=== PATIENT | male | born 1990 | race African-American/Black ===

== ENCOUNTER 2018-06-10 22:20 | Inpatient (IN) | END 2018-06-14 21:55 | disposition home or self-care (01) | DRG 682 ==

== ENCOUNTER 2018-07-12 13:00 | Inpatient (IN) | END 2018-07-14 20:32 | disposition home or self-care (01) | DRG 640 ==

== ENCOUNTER 2018-12-11 01:50 | Inpatient (IN) | payer MEDICARE ==
[2018-12-11] VITALS (7 sets, daily range): BP systolic 159–197; BP diastolic 92–117; PULSE 100–117; RESP 20; Ht 185.4 cm; Wt 72.7 kg
[~2018-12-11] VITALS: Ht 185.4 cm; Wt 72.7 kg
[~2018-12-11 01:50] MED LIST: CARV12.579 PO; HYDR-3672 PO; LOSA50TA2 PO; NEPH PO; NIFE30TA2 PO
[2018-12-11] MEDS ORDERED: hydrALAzine 20 MG INJ IV ONE ×2 (03:30→05:30)
[2018-12-11] MEDS ORDERED: LABETALOL HCL 20MG INJ ONE (06:16)
[2018-12-11] MEDS ORDERED: LABETALOL HCL 20MG INJ IV ONE (06:30)
[2018-12-11] MEDS ORDERED: NACL 0.9% 3 ML SYG IV SCH (07:00)
[2018-12-11] MEDS ORDERED: ACETAMINOPHEN 325 MG TAB PO PRN (07:00)
[2018-12-11] MEDS ORDERED: NITROGLYCERIN (SL) 0.4 MG TAB SL PRN (07:00)
[2018-12-11] MEDS ORDERED: LABETALOL HCL 20MG INJ IV PRN (07:00)
--- NOTE | 2018-12-11 08:37 | HP ---
Date/Time of Note Date/Time of Note DATE: 12/11/18 TIME: 08:37 Assessment/Plan VTE Prophylaxis SCD applied (from Nsg): Yes Pharmacological prophylaxis: heparin Lines/Catheters IV Catheter Type (from Nrsg): Saline Lock Assessment/Plan Hospital Course SUBJECTIVE: Lying in bed comfortably. No SOB, chest pain, or other discomfort. On room air. OBJECTIVE: Vital signs-see below PHYSICAL EXAM: Constitutional: Well-developed, well-nourished, not in acute distress. HEENT: Head atraumatic and normocephalic. Eyes: Extraocular muscles intact. Anicteric sclerae. Pupils equal bilaterally, reactive to light. NECK: Supple without lymph node. CHEST: Clear and good breath sounds equally. No wheezing. No rhonchi. HEART: S1, S2. Regular rate and rhythm. ABDOMEN: Soft, nontender. Bowel sounds were present. EXTREMITIES: Full range of motion in all the extremities. No cyanosis, clubbing or edema. NEUROLOGIC: Alert and oriented x3. No focal deficit. No sensory deficit. PSYCHOSOCIAL: In a good mood. No signs of depression. INTEGUMENTARY: Moist mucous membranes. Good skin turgor, intact. Access: Right upper extremity AV fistula ASSESSMENT AND PLAN:28 yo AA male w/htn, ESRD/HD () here with shortness of breath and persistent hypertension 3-day duration... 1. Hypertensive emergency. --Increase Coreg to 25 mg, increase nifedipine to 60 mg, resume hydralazine 50 mg 3 times daily -Add as needed clonidine 2. Troponin leak, likely type B in light of ESRD/poor renal clearance. -NO Chest pain, EKG with no ST or T wave acute changes. -Continue trending cardiac biomarkers. 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 3. Pulmonary edema with volume overload -Nephrology consulted for hemodialysis/ultrafiltration -Monitor volume status 4. ESRD, hemodialysis () -Access: Right AV shunt, good bruit/thrill -Management per nephrology. -Monitor renal function. 5. Asymptomatic sinus tachycardia -Continue monitoring. 6. Anemia of ESRD -Stable H&H. Epogen per nephrology team. DVT prophylaxis: Subcutaneous heparin. PUD prophylaxis: Not indicated CODE STATUS: Full code Diet: Renal diet. Disposition: Continue current management. Await for cardiology/nephrology recommendations. Patient was seen in collaboration with Dr. Barajas. Result Diagram: 12/11/18 0228 12/11/18 0228 Results 24hrs Laboratory Tests Test 12/11/18 02:28 12/11/18 02:31 White Blood Count 11.1 #H Red Blood Count 3.74 #L Hemoglobin 10.8 #L Hematocrit 34.0 #L Mean Corpuscular Volume 90.9 Mean Corpuscular Hemoglobin 28.9 L Mean Corpuscular Hemoglobin Concent 31.8 L Red Cell Distribution Width 14.3 Platelet Count 236 Mean Platelet Volume 10.5 H Immature Granulocytes % 0.500 H Neutrophils % 84.9 H Lymphocytes % 5.7 L Monocytes % 8.3 Eosinophils % 0.3 Basophils % 0.3 Nucleated Red Blood Cells % 0.0 Immature Granulocytes # 0.060 H Neutrophils # 9.5 H Lymphocytes # 0.6 L Monocytes # 0.9 Eosinophils # 0.0 Basophils # 0.0 Nucleated Red Blood Cells # 0.0 Prothrombin Time 13.7 Prothrombin Time Ratio 1.1 INR International Normalized Ratio 1.04 Activated Partial Thromboplast Time 27.2 Sodium Level 140 Potassium Level 4.3 Chloride Level 97 Carbon Dioxide Level 22 Anion Gap 21 H Blood Urea Nitrogen 77 H Creatinine 14.52 H Est Glomerular Filtrat Rate mL/min 5 L Glucose Level 94 Calcium Level 9.4 Total Bilirubin 0.9 Direct Bilirubin 0.00 Indirect Bilirubin 0.9 Aspartate Amino Transf (AST/SGOT) 16 Alanine Aminotransferase (ALT/SGPT) 9 L Alkaline Phosphatase 100 Troponin I 0.228 *H Total Protein 8.1 Albumin 4.4 Globulin 3.70 H Albumin/Globulin Ratio 1.18 Lactic Acid Level 1.3 HPI/ROS Admit Date/Time Admit Date/Time Dec 11, 2018 at 05:31 Hx of Present Illness 28-year-old -[place] male with a past medical history of end-stage renal disease on hemodialysis schedule, hypertension, anemia of ESRD, admitted with shortness of breath, persistent hypertension since Tuesday after dialysis. Patient denied chest pain, palpitation, nausea, vomiting, abdominal pain, diaphoresis, loss of consciousness, dizziness, fever, chills, cough, hemoptysis, diarrhea or other constitutional symptoms. Initial labs showed white count 11,100, hemoglobin 10.8, hematocrit 34, BUN 77, creatinine 14.52, and elevated troponin 0 0.228. Chest x-ray showed moderate cardiomegaly with pulmonary edema. Vital signs heart rate 116, blood pressure 227/144 on arrival. No fevers. ROS A 12 point review of system was assessed and is negative other than what is mentioned in the HPI PMH/Family/Social Past Medical History See HPI Medications Current Medications IV Flush (NS 3 ml) 3 ml PER PROTOCOL IV ; Start 12/11/18 at 07:00 Aspirin (Aspirin) 81 mg DAILY PO ; Start 12/11/18 at 09:00 Nitroglycerin (Nitroglycerin (Sl Tab) 0.4 Mg) 1 tab Q5M PRN SL .CHEST PAIN; Start 12/11/18 at 07:00 Acetaminophen (Tylenol Tab) 650 mg Q6H PRN PO .PAIN 1-3 OR TEMP; Start 12/11/18 at 07:00 Heparin Sodium (Porcine) (Heparin (5000 Units/1ml)) 5,000 unit Q12 SC ; Start 12/11/18 at 09:00 Carvedilol (Coreg) 12.5 mg BID PO ; Start 12/11/18 at 09:00 Losartan Potassium (Cozaar) 50 mg BID PO ; Start 12/11/18 at 09:00 Multivit/Ca Carb/ B Cmplx/FA/Prenat (Adrianne-Lauren) 1 tab DAILY PO ; Start 12/11/18 at 09:00 Nifedipine (Procardia Xl) 30 mg BID PO ; Start 12/11/18 at 09:00 Labetalol HCl (Labetalol) 10 mg Q2H PRN IV sbp > 160; Start 12/11/18 at 07:00 Coded Allergies: No Known Allergy (Unverified , 12/11/18) Past Surgical History AV fistula Past Surgical Hx: other Family History Significant Family History: no pertinent family hx Social History Former smoker. Currently denies any substance/nicotine/alcohol abuse Smoking Status: Former smoker Exam/Review of Systems Vital Signs Vitals Vital Signs Date Temp Pulse Resp B/P (MAP) Pulse Ox O2 O2 Flow FiO2 Time Delivery Rate 12/11/18 99.0 118 23 170/108 99 Nasal 4.0 08:08 (128) Cannula 118 12/11/18 50 02:47 FRANK ALBERTS V. [employer]CR[employer]ER Dec 11, 2018 08:37
[2018-12-11] MEDS: MULTIVIT/CA CARB/B CMPLX/FA TAB PO SCH (08:48)
[2018-12-11] MEDS: NIFEdipine (XL) 60 MG TAB PO SCH ×2 (08:50→20:16)
[2018-12-11] MEDS: LOSARTAN 50 MG TAB PO SCH ×2 (08:50→20:15)
[2018-12-11] MEDS: ASPIRIN 81 MG TAB PO SCH (08:50)
[2018-12-11] MEDS: HEPARIN 5,000 UNIT/1 ML VIAL SC SCH ×2 (08:51→20:26)
[2018-12-11] MEDS ORDERED: NIFEdipine (XL) 30 MG TAB PO SCH (09:00)
--- NOTE | 2018-12-11 11:39 | CONS ---
Assessment/Plan Assessment/Plan Assessment/Plan (Daily) 1. Acute NSTEMI 2. acute fluid overload with pulmonary edema 3. ESRD on HD TTS schedule 4. H/o HTN 5. H/o HL 6. H/o Anemia of ESRD 7. accelerated HTN Plan : will plan for HD on Tuesday AM through Right upper extremity AVF Coreg 25 mg BID, Clonidine 0.1mg PO TID, Losartan 50mg BID, hydralazine 50mg TID and Nifedipine XL 60mg BID, IV hydralazine prn NSTEMI management as per cardiology will keep pt on TTS schedule pt follows at [facility] Thanks for consultaiton, I will follow up Consultation Date/Type/Reason Admit Date/Time Dec 11, 2018 at 05:31 Date of Consultation: Dec 11, 2018 Type of Consult NEPHROLOGY Reason for Consultation ESRD on HD with acute NSTEMI Requesting Provider: FRANK ALBERTS NP Date/Time of Note DATE: 12/11/18 TIME: 11:39 Hx of Present Illness 28-year-old -[place] male with a past medical history of end-stage renal disease on hemodialysis schedule, hypertension, anemia of ESRD, admitted with shortness of breath, persistent hypertension since Tuesday after dialysis. Initial labs showed white count 11,100, hemoglobin 10.8, hematocrit 34, BUN 77, creatinine 14.52, and elevated troponin 0 0.228 Chest x-ray showed moderate cardiomegaly with pulmonary edema. Vital signs heart rate 116, blood pressure 227/144 on arrival. No fevers., no chills Pt admitted to tele floor for acute NSTEMI, cardiology has been consulted for it Renal has been consulted for Pulmonary edema, Accelerated HTN Constitutional: poor po Eyes: no complaints ENT: congestion Respiratory: pain, cough, pleuritic pain, shortness of breath Cardiovascular: no complaints Gastrointestinal: no complaints Genitourinary: no complaints Musculoskeletal: no complaints Skin: no complaints Neurologic: no complaints Endocrine: no complaints Lymphatic: no complaints Psychological: no complaints Immunologic: no complaints Past Medical History Medical History: high cholesterol, hypertension, other (ESRD on HD< GERD ) Home Meds Active Scripts Multivit/Ca Carb/B Cmplx/Fa* (Adrianne-Lauren*) 1 Tab Tab, 1 TAB PO DAILY, #30 TAB Prov:ANA MCKEON [employer]PERVISOR [employer]ANDY 06/14/18 Hydralazine Hcl* (Hydralazine Hcl*) 50 Mg Tab, 50 MG PO TID, #90 TAB Prov:ANA MCKEON SONIA 06/14/18 Nifedipine (Procardia Xl) 30 Mg Tab.er.24, 30 MG PO BID, #60 TAB Prov:ANA MCKEON SUPERVISOR [employer]ANDY 06/14/18 Carvedilol* (Carvedilol*) 12.5 Mg Tablet, 12.5 MG PO BID, #60 TAB Prov:ADANJUDIANA NP 06/14/18 Losartan Potassium* (Cozaar*) 50 Mg Tablet, 50 MG PO BID, #60 TAB Prov:ANA MCKEON SUPERVISOR [employer]ANDY 06/14/18 Medications Current Medications IV Flush (NS 3 ml) 3 ml PER PROTOCOL IV ; Start 12/11/18 at 07:00 Aspirin (Aspirin) 81 mg DAILY PO Last administered on 12/11/18at 08:50; Admin Dose 81 MG; Start 12/11/18 at 09:00 Nitroglycerin (Nitroglycerin (Sl Tab) 0.4 Mg) 1 tab Q5M PRN SL .CHEST PAIN; Start 12/11/18 at 07:00 Acetaminophen (Tylenol Tab) 650 mg Q6H PRN PO .PAIN 1-3 OR TEMP; Start 12/11/18 at 07:00 Heparin Sodium (Porcine) (Heparin (5000 Units/1ml)) 5,000 unit Q12 SC ; Start 12/11/18 at 09:00 Losartan Potassium (Cozaar) 50 mg BID PO Last administered on 12/11/18at 08:50; Admin Dose 50 MG; Start 12/11/18 at 09:00 Multivit/Ca Carb/ B Cmplx/FA/Prenat (Adrianne-Lauren) 1 tab DAILY PO Last administered on 12/11/18at 08:48; Admin Dose 1 TAB; Start 12/11/18 at 09:00 Hydralazine HCl (Apresoline) 50 mg TID PO Last administered on 12/11/18at 08:49; Admin Dose 50 MG; Start 12/11/18 at 09:00 Carvedilol (Coreg) 25 mg BID PO Last administered on 12/11/18at 08:50; Admin Dose 25 MG; Start 12/11/18 at 09:00 Nifedipine (Procardia Xl) 60 mg BID PO Last administered on 12/11/18at 08:50; Admin Dose 60 MG; Start 12/11/18 at 09:00 Atorvastatin Calcium (Lipitor) 80 mg HS PO ; Start 12/11/18 at 21:00 Clonidine (Catapres) 0.1 mg TID PO ; Start 12/11/18 at 13:00 Clonidine (Catapres) 0.2 mg Q6H PRN PO SBP>160; Start 12/11/18 at 10:30 Allergies: Coded Allergies: No Known Allergy (Unverified , 12/11/18) Past Surgical History Past Surgical Hx: other (Right upper rextremity AVF ) Family History Significant Family History: no pertinent family hx Social History Alcohol Use: none Smoking Status: Former smoker Drug Use: none Exam/Review of Systems Exam Vitals Vital Signs Date Temp Pulse Resp B/P (MAP) Pulse Ox O2 O2 Flow FiO2 Time Delivery Rate 12/11/18 98.9 102 20 160/92 90 11:18 (114) 12/11/18 Nasal 4.0 08:08 Cannula 12/11/18 50 02:47 Constitutional: alert Head: normocephalic ENMT: nl external ears & nose Neck: supple, non-tender Respiratory: crackles/rales, diminished breath sounds, other Cardiovascular: regular rate and rhythm Gastrointestinal: soft, non-tender Musculoskeletal: nl extremities to inspection Extremities: normal pulses Neurological: NURSE INFORMATICIST II-XII intact, nl mental status, nl speech, nl strength Skin: nl turgor Lymph: nl lymph nodes Results Result Diagram: 12/11/1822712/11/18 0228 Results 24hrs Laboratory Tests Test 12/11/18 02:28 12/11/18 02:31 12/11/18 08:02 White Blood Count 11.1 #H Red Blood Count 3.74 #L Hemoglobin 10.8 #L Hematocrit 34.0 #L Mean Corpuscular Volume 90.9 Mean Corpuscular Hemoglobin 28.9 L Mean Corpuscular Hemoglobin Concent 31.8 L Red Cell Distribution Width 14.3 Platelet Count 236 Mean Platelet Volume 10.5 H Immature Granulocytes % 0.500 H Neutrophils % 84.9 H Lymphocytes % 5.7 L Monocytes % 8.3 Eosinophils % 0.3 Basophils % 0.3 Nucleated Red Blood Cells % 0.0 Immature Granulocytes # 0.060 H Neutrophils # 9.5 H Lymphocytes # 0.6 L Monocytes # 0.9 Eosinophils # 0.0 Basophils # 0.0 Nucleated Red Blood Cells # 0.0 Prothrombin Time 13.7 Prothrombin Time Ratio 1.1 INR International Normalized Ratio 1.04 Activated Partial Thromboplast Time 27.2 Sodium Level 140 Potassium Level 4.3 Chloride Level 97 Carbon Dioxide Level 22 Anion Gap 21 H Blood Urea Nitrogen 77 H Creatinine 14.52 H Est Glomerular Filtrat Rate mL/min 5 L Glucose Level 94 Calcium Level 9.4 Total Bilirubin 0.9 Direct Bilirubin 0.00 Indirect Bilirubin 0.9 Aspartate Amino Transf (AST/SGOT) 16 Alanine Aminotransferase (ALT/SGPT) 9 L Alkaline Phosphatase 100 Troponin I 0.228 *H 0.320 *H Total Protein 8.1 Albumin 4.4 Globulin 3.70 H Albumin/Globulin Ratio 1.18 Lactic Acid Level 1.3 0.9 Creatine Kinase 144 Creatine Kinase Index 1.4 Creatinine Kinase MB (Mass) 1.99 Medications Medication Current Medications IV Flush (NS 3 ml) 3 ml PER PROTOCOL IV ; Start 12/11/18 at 07:00 Aspirin (Aspirin) 81 mg DAILY PO Last administered on 12/11/18at 08:50; Admin D ose 81 MG; Start 12/11/18 at 09:00 Nitroglycerin (Nitroglycerin (Sl Tab) 0.4 Mg) 1 tab Q5M PRN SL .CHEST PAIN; Start 12/11/18 at 07:00 Acetaminophen (Tylenol Tab) 650 mg Q6H PRN PO .PAIN 1-3 OR TEMP; Start 12/11/18 at 07:00 Heparin Sodium (Porcine) (Heparin (5000 Units/1ml)) 5,000 unit Q12 SC ; Start 12/11/18 at 09:00 Losartan Potassium (Cozaar) 50 mg BID PO Last administered on 12/11/18at 08:50; Admin Dose 50 MG; Start 12/11/18 at 09:00 Multivit/Ca Carb/ B Cmplx/FA/Prenat (Adrianne-Lauren) 1 tab DAILY PO Last administered on 12/11/18at 08:48; Admin Dose 1 TAB; Start 12/11/18 at 09:00 Hydralazine HCl (Apresoline) 50 mg TID PO Last administered on 12/11/18at 08:49; Admin Dose 50 MG; Start 12/11/18 at 09:00 Carvedilol (Coreg) 25 mg BID PO Last administered on 12/11/18at 08:50; Admin Dose 25 MG; Start 12/11/18 at 09:00 Nifedipine (Procardia Xl) 60 mg BID PO Last administered on 12/11/18at 08:50; Admin Dose 60 MG; Start 12/11/18 at 09:00 Atorvastatin Calcium (Lipitor) 80 mg HS PO ; Start 12/11/18 at 21:00 Clonidine (Catapres) 0.1 mg TID PO ; Start 12/11/18 at 13:00 Clonidine (Catapres) 0.2 mg Q6H PRN PO SBP>160; Start 12/11/18 at 10:30 AQUILINO RAPHAEL MD Dec 11, 2018 11:39
--- NOTE | 2018-12-11 14:21 | RADRPT ---
Echocardiogram Report Patient Name: ERIK BUSBYatient ID: [id number] : 1990 (28y 5m)Study Date: 12/11/2018 9:11:52 AM Gender: MAccession #: [id number] Tech: Marcel Yoon [facility] Location: [address] Ref.Physician: ROMELIA MOCTEZUMA Height(Cm): BSA: Weight(Kg): Quality: AdequateAccount #: Procedures: Echocardiographic Report: Transthoracic echocardiogram with complete 2D, M-Mode, and doppler examination. Indications: NSTEMI. Measurements: 2D/M Mode Doppler Measurement Value Normal Range Measurement Value Normal Range LVIDd 2D 5.3 [ 4.2 - 5.8 ] cm AV Peak Rick 1.7 [ 100.0 - 170.0 ] cm/sec LVIDs 2D 3.9 [ 2.5 - 4.0 ] cm AV Peak PG 12.0 [ 2.0 - 9.0 ] mmHg LVPWd 2D 1.4 [ 0.6 - 1.0 ] cm LVOT Peak Rick 1.8 [ 70.0 - 110.0 ] cm/sec IVSd 2D 1.7 [ 0.6 - 1.0 ] cm LVOT Peak PG 13.0 [ 2.0 - 6.0 ] mmHg AoR Diam 2D 2.5 [ 2.6 - 3.4 ] cm MV E Peak Rick 1.6 [ 60.0 - 130.0 ] cm/sec EDV 2D 134.0 [ 62.0 - 150.0 ] ml MV Decel Time 137 [ 104 - 258 ] msec ESV 2D 67.5 [ 21.0 - 61.0 ] ml Lat E` Rick 0.2 [ 10.0 - 15.0 ] cm/sec EF 2D 49.6 [ 52.0 - 72.0 ] percent Lateral E/E` 10.3 [ 1.0 - 2.0 ] ratio LA Dimen 2D 4.4 [ 3.0 - 4.0 ] cm TR Peak Rick 3.5 [ 100.0 - 280.0 ] cm/sec TR Peak PG 48.0 mmHg RVSP 58.0 [ 10.0 - 36.0 ] mmHg Findings: Left Ventricle: Lower limits of normal systolic function. Normal left ventricular cavity size. Sigmoid septum. Ejection fraction is visually estimated at 50 %. Tissue Doppler/Mitral Doppler indices are consistent with restrictive physiology with markedly elevated left atrial pressure (Stage III-IV diastolic dysfunction). Right Ventricle: Normal right ventricular size. Normal right ventricular systolic function. Left Atrium: There is mild enlargement of left atrium. Right Atrium: The right atrium is normal in size. Linear artifact in right atrium suggestive of catheter, pacer lead, or ICD lead. Mitral Valve: Mitral valve leaflets appear mildly thickened. Mild mitral leaflet calcification. Mild to moderate mitral valve regurgitation. The regurgitation jet is eccentrically directed which may underestimate the severity of mitral regurgitation. Aortic Valve: Aortic cusps appear mildly calcified. Mild aortic valve regurgitation. Tricuspid Valve: Normal appearance of the tricuspid valve. Estimated peak PA systolic pressure 58 mmHg. There is mild tricuspid regurgitation. Pulmonic Valve: Normal pulmonic valve appearance. Pericardium: Normal pericardium with no significant pericardial effusion. Aorta: Normal aortic root. IVC: Dilated IVC with respiratory collapse consistent with elevated right atrial pressure. Conclusions: There is mild enlargement of left atrium. Aortic cusps appear mildly calcified. Mild aortic valve regurgitation. Mitral valve leaflets appear mildly thickened. Mild mitral leaflet calcification. Mild to moderate mitral valve regurgitation. The regurgitation jet is eccentrically directed which may underestimate the severity of mitral regurgitation. Normal appearance of the tricuspid valve. Estimated peak PA systolic pressure 58 mmHg. There is mild tricuspid regurgitation. Lower limits of normal systolic function. Normal left ventricular cavity size. Sigmoid septum. Ejection fraction is visually estimated at 50 %. Tissue Doppler/Mitral Doppler indices are consistent with restrictive physiology with markedly elevated left atrial pressure (Stage III-IV diastolic dysfunction). Electronically Signed By: Antonio Oneill 2018-12-11 14:20:12 PDT
[2018-12-11] MEDS ORDERED: ALBUMIN HUMAN 25% 100 ML IV PRN (15:00)
[2018-12-11] MEDS ORDERED: SODIUM CHLORIDE 0.9% 1L BAG IV PRN (15:00)
--- NOTE | 2018-12-11 15:45 | CONS ---
Assessment/Plan Assessment/Plan Hospital Course (Demo Recall) 1. Mildly abnormal troponin: Most likely secondary to subendocardial injury due to renal failure, fluid overload, hypertension 2. Dyspnea multifactorial probably secondary to fluid overload 3. Hypertension hypertensive heart disease 4. Renal failure on dialysis 5. Anemia Recommendations: Follow-up with renal recommendation regarding hemodialysis. Aspirin for the time being We will repeat the cardiac enzymes tomorrow. So far CK CK-MB are not markedly elevated Coreg was increased. Continued blood pressure control Aggressive risk factor modifications Thank you for his referral. Continue to follow along with you HERMANN MOTA MD FAC Consultation Date/Type/Reason Admit Date/Time Dec 11, 2018 at 05:31 Date of Consultation: Dec 11, 2018 Type of Consult Cardiology Reason for Consultation + TROP Requesting Provider: FRANK ALBERTS NP Date/Time of Note DATE: 12/11/18 TIME: 15:40 Hx of Present Illness Interventional cardiology consultation note Chief complaint: Shortness of breath Reason for consult: Abnormal troponin History of present illness: Thank you for this referral. History was from the patient review of the chart discussion physician staff. This is a pleasant 28-year-old gentleman with history of renal failure on dialysis, hypertension, who has been short of breath over the past few days. Patient went on dialysis on Tuesday 2 days ago and had dialysis done but continues to be short of breath and finally came to emergency room. In the emergency was noted to have blood pressure over 230. His blood pressure has been better controlled and currently breathing better. His troponin was mildly elevated but denies any chest pain or pressure to me he has complains of congestion Allergies: No known drug allergies Medications were reviewed as per medical reconciliation sheet Family history: No history of early coronary artery disease in the family Father and grandfather with hypertension Social history: Smokes less than half a pack a day social drinking Past medical history: End-stage renal disease hemodialysis, hypertension Review of system: Patient denies all others except for above-mentioned Past Medical History Home Meds Active Scripts Multivit/Ca Carb/B Cmplx/Fa* (Adrianne-Lauren*) 1 Tab Tab, 1 TAB PO DAILY, #30 TAB Prov:ANA MCKEON [employer]AD 06/14/18 Hydralazine Hcl* (Hydralazine Hcl*) 50 Mg Tab, 50 MG PO TID, #90 TAB Prov:ANA MCKEON [employer]AD 06/14/18 Nifedipine (Procardia Xl) 30 Mg Tab.er.24, 30 MG PO BID, #60 TAB Prov:ADANJUDIANA [employer]ODUCTION LEAD 06/14/18 Carvedilol* (Carvedilol*) 12.5 Mg Tablet, 12.5 MG PO BID, #60 TAB Prov:ADANJUDIANA [employer]ODUCTION LEAD 06/14/18 Losartan Potassium* (Cozaar*) 50 Mg Tablet, 50 MG PO BID, #60 TAB Prov:ANA MCKEON [employer] LE[employer] 06/14/18 Medications Current Medications IV Flush (NS 3 ml) 3 ml PER PROTOCOL IV ; Start 12/11/18 at 07:00 Aspirin (Aspirin) 81 mg DAILY PO Last administered on 12/11/18at 08:50; Admin Dose 81 MG; Start 12/11/18 at 09:00 Nitroglycerin (Nitroglycerin (Sl Tab) 0.4 Mg) 1 tab Q5M PRN SL .CHEST PAIN; Start 12/11/18 at 07:00 Acetaminophen (Tylenol Tab) 650 mg Q6H PRN PO .PAIN 1-3 OR TEMP; Start 12/11/18 at 07:00 Heparin Sodium (Porcine) (Heparin (5000 Units/1ml)) 5,000 unit Q12 SC ; Start 12/11/18 at 09:00 Losartan Potassium (Cozaar) 50 mg BID PO Last administered on 12/11/18at 08:50; Admin Dose 50 MG; Start 12/11/18 at 09:00 Multivit/Ca Carb/ B Cmplx/FA/Prenat (Adrianne-Lauren) 1 tab DAILY PO Last administered on 12/11/18at 08:48; Admin Dose 1 TAB; Start 12/11/18 at 09:00 Hydralazine HCl (Apresoline) 50 mg TID PO Last administered on 12/11/18at 12:55; Admin Dose 50 MG; Start 12/11/18 at 09:00 Carvedilol (Coreg) 25 mg BID PO Last administered on 12/11/18at 08:50; Admin Dose 25 MG; Start 12/11/18 at 09:00 Nifedipine (Procardia Xl) 60 mg BID PO Last administered on 12/11/18at 08:50; Admin Dose 60 MG; Start 12/11/18 at 09:00 Atorvastatin Calcium (Lipitor) 80 mg HS PO ; Start 12/11/18 at 21:00 Clonidine (Catapres) 0.1 mg TID PO Last administered on 12/11/18at 12:54; Admin Dose 0.1 MG; Start 12/11/18 at 13:00 Clonidine (Catapres) 0.2 mg Q6H PRN PO SBP>160; Start 12/11/18 at 10:30 Albumin Human 100 ml @ 100 mls/hr WITH DIALYSIS PRN IV SBP <90 DURING DIALYSIS; Start 12/11/18 at 15:00 Sodium Chloride (NS) -To prime the dialy... DIRECTED FOR HD PRN IV HD; Start 12/11/18 at 15:00 Allergies: Coded Allergies: No Known Allergy (Unverified , 12/11/18) Past Surgical History Past Surgical Hx: other Social History Smoking Status: Former smoker Exam/Review of Systems Vital Signs Vitals Vital Signs Date Temp Pulse Resp B/P (MAP) Pulse Ox O2 O2 Flow FiO2 Time Delivery Rate 12/11/18 103 12:11 12/11/18 98.9 20 160/92 90 11:18 (114) 12/11/18 Nasal 4.0 08:08 Cannula 12/11/18 50 02:47 Exam Exam General: no acute distress HEENT: NC/AT. pupils are equal. round. NECK: NO JVD. no stridor. CV: RRR. systolic murmur; no gallop or rubs. PULM: no wheezing or rhonchi. GI: SOFT, NT, ND, no rebound or guarding Extremity: trace B/L LE edema. no clubbing. neuro: awake and alert, OX3. Psych: calm and pleasant rectal: deferred : normal EKG sinus tachycardia. Nonspecific ST abnormalities Chest x-ray showed. Bilateral hazy and patchy opacities could represent pulmonary edema and/or mult ifocal pneumonia. Mild to moderate cardiomegaly. Echocardiogram which was personally reviewed has shown: There is mild enlargement of left atrium. Aortic cusps appear mildly calcified. Mild aortic valve regurgitation. Mitral valve leaflets appear mildly thickened. Mild mitral leaflet calcification. Mild to moderate mitral valve regurgitation. The regurgitation jet is eccentrically directed which may underestimate the severity of mitral regurgitation. Normal appearance of the tricuspid valve. Estimated peak PA systolic pressure 58 mmHg. There is mild tricuspid regurgitation. Lower limits of normal systolic function. Normal left ventricular cavity size. Sigmoid septum. Ejection fraction is visually estimated at 50 %. Tissue Doppler/Mitral Doppler indices are consistent with restrictive physiology with markedly elevated left atrial pressure (Stage III-IV diastolic dysfunction). Labs Result Diagram: 12/11/188 12/11/188 Results 24hrs Laboratory Tests Test 12/11/18 02:28 12/11/18 02:31 12/11/18 08:02 White Blood Count 11.1 #H Red Blood Count 3.74 #L Hemoglobin 10.8 #L Hematocrit 34.0 #L Mean Corpuscular Volume 90.9 Mean Corpuscular Hemoglobin 28.9 L Mean Corpuscular Hemoglobin Concent 31.8 L Red Cell Distribution Width 14.3 Platelet Count 236 Mean Platelet Volume 10.5 H Immature Granulocytes % 0.500 H Neutrophils % 84.9 H Lymphocytes % 5.7 L Monocytes % 8.3 Eosinophils % 0.3 Basophils % 0.3 Nucleated Red Blood Cells % 0.0 Immature Granulocytes # 0.060 H Neutrophils # 9.5 H Lymphocytes # 0.6 L Monocytes # 0.9 Eosinophils # 0.0 Basophils # 0.0 Nucleated Red Blood Cells # 0.0 Prothrombin Time 13.7 Prothrombin Time Ratio 1.1 INR International Normalized Ratio 1.04 Activated Partial Thromboplast Time 27.2 Sodium Level 140 Potassium Level 4.3 Chloride Level 97 Carbon Dioxide Level 22 Anion Gap 21 H Blood Urea Nitrogen 77 H Creatinine 14.52 H Est Glomerular Filtrat Rate mL/min 5 L Glucose Level 94 Calcium Level 9.4 Total Bilirubin 0.9 Direct Bilirubin 0.00 Indirect Bilirubin 0.9 Aspartate Amino Transf (AST/SGOT) 16 Alanine Aminotransferase (ALT/SGPT) 9 L Alkaline Phosphatase 100 Troponin I 0.228 *H 0.320 *H Total Protein 8.1 Albumin 4.4 Globulin 3.70 H Albumin/Globulin Ratio 1.18 Lactic Acid Level 1.3 0.9 Creatine Kinase 144 Creatine Kinase Index 1.4 Creatinine Kinase MB (Mass) 1.99 Medications Medications Current Medications IV Flush (NS 3 ml) 3 ml PER PROTOCOL IV ; Start 12/11/18 at 07:00 Aspirin (Aspirin) 81 mg DAILY PO Last administered on 12/11/18at 08:50; Admin Dose 81 MG; Start 12/11/18 at 09:00 Nitroglycerin (Nitroglycerin (Sl Tab) 0.4 Mg) 1 tab Q5M PRN SL .CHEST PAIN; Start 12/11/18 at 07:00 Acetaminophen (Tylenol Tab) 650 mg Q6H PRN PO .PAIN 1-3 OR TEMP; Start 12/11/18 at 07:00 Heparin Sodium (Porcine) (Heparin (5000 Units/1ml)) 5,000 unit Q12 SC ; Start 12/11/18 at 09:00 Losartan Potassium (Cozaar) 50 mg BID PO Last administered on 12/11/18 08:50; Admin Dose 50 MG; Start 12/11/18 at 09:00 Multivit/Ca Carb/ B Cmplx/FA/Prenat (Adrianne-Lauren) 1 tab DAILY PO Last administered on 12/11/18at 08:48; Admin Dose 1 TAB; Start 12/11/18 at 09:00 Hydralazine HCl (Apresoline) 50 mg TID PO Last administered on 12/11/18 12:55; Admin Dose 50 MG; Start 12/11/18 at 09:00 Carvedilol (Coreg) 25 mg BID PO Last administered on 12/11/18 08:50; Admin Dose 25 MG; Start 12/11/18 at 09:00 Nifedipine (Procardia Xl) 60 mg BID PO Last administered on 12/11/18 08:50; Admin Dose 60 MG; Start 12/11/18 at 09:00 Atorvastatin Calcium (Lipitor) 80 mg HS PO ; Start 12/11/18 at 21:00 Clonidine (Catapres) 0.1 mg TID PO Last administered on 12/11/18at 12:54; Admin Dose 0.1 MG; Start 12/11/18 at 13:00 Clonidine (Catapres) 0.2 mg Q6H PRN PO SBP>160; Start 12/11/18 at 10:30 Albumin Human 100 ml @ 100 mls/hr WITH DIALYSIS PRN IV SBP <90 DURING DIALYSIS; Start 12/11/18 at 15:00 Sodium Chloride (NS) -To prime the dialy... DIRECTED FOR HD PRN IV HD; Start 12/11/18 at 15:00 HERMANN MOTA MD Dec 11, 2018 15:45
[2018-12-11] MEDS: ATORVASTATIN 80 MG TAB PO SCH (20:15)
[2018-12-12] VITALS (27 sets, daily range): BP systolic 120–158; BP diastolic 66–99; PULSE 72–100; RESP 18–20
[2018-12-12] MEDS: LOSARTAN 50 MG TAB PO SCH ×2 (08:25→21:00)
[2018-12-12] MEDS: MULTIVIT/CA CARB/B CMPLX/FA TAB PO SCH (08:25)
[2018-12-12] MEDS: NIFEdipine (XL) 60 MG TAB PO SCH ×2 (08:26→21:00)
[2018-12-12] MEDS: ASPIRIN 81 MG TAB PO SCH (08:26)
[2018-12-12] MEDS: HEPARIN 5,000 UNIT/1 ML VIAL SC SCH ×2 (08:29→21:00)
--- NOTE | 2018-12-12 12:05 | PN ---
Date/Time of Note Date/Time of Note DATE: 12/12/18 TIME: 12:02 Assessment/Plan VTE Prophylaxis Risk score (from Ns)>0 risk: 2 SCD applied (from Ns): No SCD contraindicated: other Pharmacological prophylaxis: heparin Lines/Catheters IV Catheter Type (from [facility]): Peripheral IV Assessment/Plan Hospital Course SUBJECTIVE: Having hemodialysis. No chest pain, palpitation or other discom fort. OBJECTIVE: Vital signs-see below PHYSICAL EXAM: Constitutional: Well-developed, well-nourished, not in acute distress. HEENT: Head atraumatic and normocephalic. Eyes: Extraocular muscles intact. Anicteric sclerae. Pupils equal bilaterally, reactive to light. NECK: Supple without lymph node. CHEST: Clear and good breath sounds equally. No wheezing. No rhonchi. HEART: S1, S2. Regular rate and rhythm. ABDOMEN: Soft, nontender. Bowel sounds were present. EXTREMITIES: Full range of motion in all the extremities. No cyanosis, clubbing or edema. NEUROLOGIC: Alert and oriented x3. No focal deficit. No sensory deficit. PSYCHOSOCIAL: In a good mood. No signs of depression. INTEGUMENTARY: Moist mucous membranes. Good skin turgor, intact. Access: Right upper extremity AV fistula ASSESSMENT AND PLAN:28 yo AA male w/htn, ESRD/HD (,) here with shortness of breath and persistent hypertension 3-day duration... 1. Hypertensive emergency. -Now stable. Continue current regimen Coreg/CCB/Hydralazine/Catpress. -UF 2. Troponin leak, likely type B in light of ESRD/poor renal clearance. -NO Chest pain, EKG with no ST or T wave acute changes. -Aspirin prophylaxis -Appreciate cards recs 3. Pulmonary edema/ volume overload 2/2 esrd/DD -Clinically improved -cont ultrafiltration -Monitor volume status 4. ESRD, hemodialysis (,) -Access: Right AV shunt, good bruit/thrill -HD per nephrology. -Monitor renal function. 5. Asymptomatic sinus tachycardia -Resolved 6. Anemia of ESRD -Stable H&H. Epogen per nephrology team. 7.Stage III-IV Diastolic Dysfunction -Cont.UF for fluid removal -cont.BB DVT prophylaxis: Subcutaneous heparin. PUD prophylaxis: Not indicated CODE STATUS: Full code Diet: Renal diet. Disposition: Continue current management. f/ cardiology/nephrology recommendations. Likely DC in a.m. with outpatient hemodialysis clinic follow- up if remains clinically stable. Patient was seen in collaboration with Dr. Barajas. Result Diagram: 12/12/18 0631 12/12/18 0631 Results 24hrs Laboratory Tests Test 12/11/18 14:27 12/12/18 06:31 Creatine Kinase 125 103 Creatine Kinase Index 1.5 1.5 Creatinine Kinase MB (Mass) 1.84 1.58 Troponin I 0.354 *H 0.227 *H White Blood Count 4.5 #L Red Blood Count 3.58 L Hemoglobin 10.2 L Hematocrit 32.2 L Mean Corpuscular Volume 89.9 Mean Corpuscular Hemoglobin 28.5 L Mean Corpuscular Hemoglobin Concent 31.7 L Red Cell Distribution Width 14.5 Platelet Count 247 Mean Platelet Volume 10.3 Immature Granulocytes % 0.400 Neutrophils % 64.8 Lymphocytes % 21.5 Monocytes % 7.3 Eosinophils % 4.7 Basophils % 1.3 Nucleated Red Blood Cells % 0.0 Immature Granulocytes # 0.020 Neutrophils # 2.9 Lymphocytes # 1.0 Monocytes # 0.3 Eosinophils # 0.2 Basophils # 0.1 Nucleated Red Blood Cells # 0.0 Sodium Level 137 Potassium Level 4.7 Chloride Level 94 L Carbon Dioxide Level 22 Anion Gap 21 H Blood Urea Nitrogen 106 H Creatinine 16.90 #H Est Glomerular Filtrat Rate mL/min 4 L Glucose Level 95 Hemoglobin A1c 5.1 Calcium Level 8.9 Magnesium Level 2.7 H Total Bilirubin 0.6 Direct Bilirubin 0.00 Indirect Bilirubin 0.6 Aspartate Amino Transf (AST/SGOT) 14 L Alanine Aminotransferase (ALT/SGPT) 9 L Alkaline Phosphatase 71 Total Protein 6.5 # Albumin 3.6 Globulin 2.90 Albumin/Globulin Ratio 1.24 Triglycerides Level 145 Cholesterol Level 168 LDL Cholesterol, Calculated 108 HDL Cholesterol 31 Cholesterol/HDL Ratio 5.4 Thyroid Stimulating Hormone (TSH) 0.279 L Exam/Review of Systems Exam Vitals Vital Signs Date Temp Pulse Resp B/P (MAP) Pulse Ox O2 O2 Flow FiO2 Time Delivery Rate 12/12/18 98.0 87 18 123/67 98 11:35 (85) 12/12/18 Room Air 09:30 12/11/18 4.0 08:08 12/11/18 50 02:47 Intake and Output 12/11/18 12/11/18 12/12/18 1515:00 23:00 07:00 IntakeIntake Total 400 ml BalanceBalance 400 ml Results Results 24hrs Laboratory Tests Test 12/11/18 14:27 12/12/18 06:31 Creatine Kinase 125 103 Creatine Kinase Index 1.5 1.5 Creatinine Kinase MB (Mass) 1.84 1.58 Troponin I 0.354 *H 0.227 *H White Blood Count 4.5 #L Red Blood Count 3.58 L Hemoglobin 10.2 L Hematocrit 32.2 L Mean Corpuscular Volume 89.9 Mean Corpuscular Hemoglobin 28.5 L Mean Corpuscular Hemoglobin Concent 31.7 L Red Cell Distribution Width 14.5 Platelet Count 247 Mean Platelet Volume 10.3 Immature Granulocytes % 0.400 Neutrophils % 64.8 Lymphocytes % 21.5 Monocytes % 7.3 Eosinophils % 4.7 Basophils % 1.3 Nucleated Red Blood Cells % 0.0 Immature Granulocytes # 0.020 Neutrophils # 2.9 Lymphocytes # 1.0 Monocytes # 0.3 Eosinophils # 0.2 Basophils # 0.1 Nucleated Red Blood Cells # 0.0 Sodium Level 137 Potassium Level 4.7 Chloride Level 94 L Carbon Dioxide Level 22 Anion Gap 21 H Blood Urea Nitrogen 106 H Creatinine 16.90 #H Est Glomerular Filtrat Rate mL/min 4 L Glucose Level 95 Hemoglobin A1c 5.1 Calcium Level 8.9 Magnesium Level 2.7 H Total Bilirubin 0.6 Direct Bilirubin 0.00 Indirect Bilirubin 0.6 Aspartate Amino Transf (AST/SGOT) 14 L Alanine Aminotransferase (ALT/SGPT) 9 L Alkaline Phosphatase 71 Total Protein 6.5 # Albumin 3.6 Globulin 2.90 Albumin/Globulin Ratio 1.24 Triglycerides Level 145 Cholesterol Level 168 LDL Cholesterol, Calculated 108 HDL Cholesterol 31 Cholesterol/HDL Ratio 5.4 Thyroid Stimulating Hormone (TSH) 0.279 L Medications Medication Current Medications IV Flush (NS 3 ml) 3 ml PER PROTOCOL IV ; Start 12/11/18 at 07:00 Aspirin (Aspirin) 81 mg DAILY PO Last administered on 12/12/18at 08:26; Admin Dose 81 MG; Start 12/11/18 at 09:00 Nitroglycerin (Nitroglycerin (Sl Tab) 0.4 Mg) 1 tab Q5M PRN SL .CHEST PAIN; Start 12/11/18 at 07:00 Acetaminophen (Tylenol Tab) 650 mg Q6H PRN PO .PAIN 1-3 OR TEMP; Start 12/11/18 at 07:00 Heparin Sodium (Porcine) (Heparin (5000 Units/1ml)) 5,000 unit Q12 SC Last administered on 12/11/18 20:26; Admin Dose 5,000 UNIT; Start 12/11/18 at 09:00 Losartan Potassium (Cozaar) 50 mg BID PO Last administered on 12/12/18 08:25; Admin Dose 50 MG; Start 12/11/18 at 09:00 Multivit/Ca Carb/ B Cmplx/FA/Prenat (Adrianne-Lauren) 1 tab DAILY PO Last ad ministered on 12/12/18 08:25; Admin Dose 1 TAB; Start 12/11/18 at 09:00 Hydralazine HCl (Apresoline) 50 mg TID PO Last administered on 12/12/18 08:26; Admin Dose 50 MG; Start 12/11/18 at 09:00 Carvedilol (Coreg) 25 mg BID PO Last administered on 12/12/18 08:25; Admin Dose 25 MG; Start 12/11/18 at 09:00 Nifedipine (Procardia Xl) 60 mg BID PO Last administered on 12/12/18 08:26; Admin Dose 60 MG; Start 12/11/18 at 09:00 Atorvastatin Calcium (Lipitor) 80 mg HS PO Last administered on 12/11/18 20:15; Admin Dose 80 MG; Start 12/11/18 at 21:00 Clonidine (Catapres) 0.1 mg TID PO Last administered on 12/12/18 08:25; Admin Dose 0.1 MG; Start 12/11/18 at 13:00 Clonidine (Catapres) 0.2 mg Q6H PRN PO SBP>160; Start 12/11/18 at 10:30 Albumin Human 100 ml @ 100 mls/hr WITH DIALYSIS PRN IV SBP <90 DURING DIALYSIS; Start 12/11/18 at 15:00 Sodium Chloride (NS) -To prime the dialy... DIRECTED FOR HD PRN IV HD; Start 12/11/18 at 15:00 FRANK ALBERTS NP Dec 12, 2018 12:05
--- NOTE | 2018-12-12 15:50 | CONS ---
Assessment/Plan Assessment/Plan Assessment/Plan (Daily) 1. Acute NSTEMI 2. acute fluid overload with pulmonary edema 3. ESRD on HD TTS schedule 4. H/o HTN 5. H/o HL 6. H/o Anemia of ESRD 7. accelerated HTN Plan : HD on Today through Right upper extremity AVF Coreg 25 mg BID, Clonidine 0.1mg PO TID, Losartan 50mg BID, hydralazine 50mg TID and Nifedipine XL 60mg BID, IV hydralazine prn NSTEMI management as per cardiology will keep pt on TTS schedule pt follows at [facility] HD center Thanks for consultation, will follow up Patient seen in collaboration with Dr Juan Nogueira. Dw staff Consultation Date/Type/Reason Admit Date/Time Dec 11, 2018 at 05:31 Initial Consult Date 12/11/18 Type of Consult NEPHROLOGY Requesting Provider: FRANK ALBERTS NP Date/Time of Note DATE: 12/12/18 TIME: 15:49 24 HR Interval Summary Free Text/Dictation nad HD today afebrile BP stable feels better no new events reported last night per staff Patient seen in collaboration with Dr Juan Nogueira. Dw staff Constitutional: improved Detailed Summary Eyes: no complaints ENT: pain Respiratory: no complaints Cardiovascular: no complaints Gastrointestinal: no complaints Genitourinary: no complaints Musculoskeletal: no complaints Skin: no complaints Neurologic: no complaints Endocrine: no complaints Lymphatic: no complaints Exam/Review of Systems Exam Vitals Vital Signs Date Temp Pulse Resp B/P (MAP) Pulse Ox O2 O2 Flow FiO2 Time Delivery Rate 12/12/18 93 12:40 12/12/18 98.0 18 123/67 98 11:35 (85) 12/12/18 Room Air 09:30 12/11/18 4.0 08:08 12/11/18 50 02:47 Intake and Output 12/11/18 12/11/18 12/12/18 1414:59 22:59 06:59 IntakeIntake Total 400 ml BalanceBalance 400 ml Constitutional: alert, oriented, well developed Psych: nl mood/affect Head: normocephalic Eyes: nl lids, nl sclera ENMT: nl external ears & nose Neck: non-tender Respiratory: clear to auscultation Cardiovascular: nl pulses, other (S1S2; Right arm - av fistula;positive Bruit/thrill) Gastrointestinal: soft, non-tender Musculoskeletal: muscle weakness Extremities: normal pulses Neurological: nl mental status, nl speech Skin: nl turgor Lymph: nontender Results Result Diagram: 12/12/18 0631 12/12/18 0631 Results 24hrs Laboratory Tests Test 12/12/18 06:31 White Blood Count 4.5 #L Red Blood Count 3.58 L Hemoglobin 10.2 L Hematocrit 32.2 L Mean Corpuscular Volume 89.9 Mean Corpuscular Hemoglobin 28.5 L Mean Corpuscular Hemoglobin Concent 31.7 L Red Cell Distribution Width 14.5 Platelet Count 247 Mean Platelet Volume 10.3 Immature Granulocytes % 0.400 Neutrophils % 64.8 Lymphocytes % 21.5 Monocytes % 7.3 Eosinophils % 4.7 Basophils % 1.3 Nucleated Red Blood Cells % 0.0 Immature Granulocytes # 0.020 Neutrophils # 2.9 Lymphocytes # 1.0 Monocytes # 0.3 Eosinophils # 0.2 Basophils # 0.1 Nucleated Red Blood Cells # 0.0 Sodium Level 137 Potassium Level 4.7 Chloride Level 94 L Carbon Dioxide Level 22 Anion Gap 21 H Blood Urea Nitrogen 106 H Creatinine 16.90 #H Est Glomerular Filtrat Rate mL/min 4 L Glucose Level 95 Hemoglobin A1c 5.1 Calcium Level 8.9 Magnesium Level 2.7 H Total Bilirubin 0.6 Direct Bilirubin 0.00 Indirect Bilirubin 0.6 Aspartate Amino Transf (AST/SGOT) 14 L Alanine Aminotransferase (ALT/SGPT) 9 L Alkaline Phosphatase 71 Creatine Kinase 103 Creatine Kinase Index 1.5 Creatinine Kinase MB (Mass) 1.58 Troponin I 0.227 *H Total Protein 6.5 # Albumin 3.6 Globulin 2.90 Albumin/Globulin Ratio 1.24 Triglycerides Level 145 Cholesterol Level 168 LDL Cholesterol, Calculated 108 HDL Cholesterol 31 Cholesterol/HDL Ratio 5.4 Thyroid Stimulating Hormone (TSH) 0.279 L Medications Medication Current Medications IV Flush (NS 3 ml) 3 ml PER PROTOCOL IV ; Start 12/11/18 at 07:00 Aspirin (Aspirin) 81 mg DAILY PO Last administered on 12/12/18at 08:26; Admin Dose 81 MG; Start 12/11/18 at 09:00 Nitroglycerin (Nitroglycerin (Sl Tab) 0.4 Mg) 1 tab Q5M PRN SL .CHEST PAIN; Start 12/11/18 at 07:00 Acetaminophen (Tylenol Tab) 650 mg Q6H PRN PO .PAIN 1-3 OR TEMP; Start 12/11/18 at 07:00 Heparin Sodium (Porcine) (Heparin (5000 Units/1ml)) 5,000 unit Q12 SC Last administered on 12/11/18 20:26; Admin Dose 5,000 UNIT; Start 12/11/18 at 09:00 Losartan Potassium (Cozaar) 50 mg BID PO Last administered on 12/12/18 08:25; Admin Dose 50 MG; Start 12/11/18 at 09:00 Multivit/Ca Carb/ B Cmplx/FA/Prenat (Adrianne-Lauren) 1 tab DAILY PO Last adminis tered on 12/12/18 08:25; Admin Dose 1 TAB; Start 12/11/18 at 09:00 Hydralazine HCl (Apresoline) 50 mg TID PO Last administered on 12/12/18 08:26; Admin Dose 50 MG; Start 12/11/18 at 09:00 Carvedilol (Coreg) 25 mg BID PO Last administered on 12/12/18 08:25; Admin Dose 25 MG; Start 12/11/18 at 09:00 Nifedipine (Procardia Xl) 60 mg BID PO Last administered on 12/12/18 08:26; Admin Dose 60 MG; Start 12/11/18 at 09:00 Atorvastatin Calcium (Lipitor) 80 mg HS PO Last administered on 12/11/18 2 0:15; Admin Dose 80 MG; Start 12/11/18 at 21:00 Clonidine (Catapres) 0.1 mg TID PO Last administered on 12/12/18 08:25; Admin Dose 0.1 MG; Start 12/11/18 at 13:00 Clonidine (Catapres) 0.2 mg Q6H PRN PO SBP>160; Start 12/11/18 at 10:30 Albumin Human 100 ml @ 100 mls/hr WITH DIALYSIS PRN IV SBP <90 DURING DIALYSIS; Start 12/11/18 at 15:00 Sodium Chloride (NS) -To prime the dialy... DIRECTED FOR HD PRN IV HD; Start 12/11/18 at 15:00 DANIELLA CLINE Dec 12, 2018 15:50
--- NOTE | 2018-12-12 18:02 | CONS ---
Consult Date/Type/Reason Admit Date/Time Dec 11, 2018 at 05:31 Initial Consult Date 12/11/18 Type of Consultation: cv Requesting Provider: FRANK ALBERTS NP Date/Time of Note DATE: 12/12/18 TIME: 18:00 Subjective Interventional cardiology follow-up progress Subjective: Case discussed with the staff and telemetry was reviewed. Patient remains sinus rhythm Patient denies any chest pain or pressure to me. His breathing has significantly improved and he has had dialysis done Objective: General: no acute distress HEENT: NC/AT. pupils are equal. round. NECK: NO JVD. no stridor. CV: RRR. systolic murmur; no gallop or rubs. PULM: no wheezing or rhonchi. GI: SOFT, NT, ND, no rebound or guarding Extremity: trace B/L LE edema. no clubbing. neuro: awake and alert, OX3. Psych: calm and pleasant rectal: deferred : normal EKG sinus tachycardia. Nonspecific ST abnormalities Chest x-ray showed. Bilateral hazy and patchy opacities could represent pulmonary edema and/or multifocal pneumonia. Mild to moderate cardiomegaly. Echocardiogram which was personally reviewed has shown: There is mild enlargement of left atrium. Aortic cusps appear mildly calcified. Mild aortic valve regurgitation. Mitral valve leaflets appear mildly thickened. Mild mitral leaflet calcification. Mild to moderate mitral valve regurgitation. The regurgitation jet is eccentrically directed which may underestimate the severity of mitral regurgitation. Normal appearance of the tricuspid valve. Estimated peak PA systolic pressure 58 mmHg. There is mild tricuspid regurgitation. Lower limits of normal systolic function. Normal left ventricular cavity size. Sigmoid septum. Ejection fraction is visually estimated at 50 %. Tissue Doppler/Mitral Doppler indices are consistent with restrictive physiology with markedly elevated left atrial pressure (Stage III-IV diastolic dysfunction). Objective Vitals Vital Signs Date Temp Pulse Resp B/P (MAP) Pulse Ox O2 O2 Flow FiO2 Time Delivery Rate 12/12/18 98.0 90 18 127/71 98 16:48 (89) 12/12/18 Room Air 09:30 12/11/18 4.0 08:08 12/11/18 50 02:47 Intake and Output 12/11/18 12/11/18 12/12/18 1515:00 23:00 07:00 IntakeIntake Total 400 ml BalanceBalance 400 ml Results/Medications Result Diagram: 12/12/18 0631 12/12/18 0631 Results 24 hrs Laboratory Tests Test 12/12/18 06:31 White Blood Count 4.5 #L Red Blood Count 3.58 L Hemoglobin 10.2 L Hematocrit 32.2 L Mean Corpuscular Volume 89.9 Mean Corpuscular Hemoglobin 28.5 L Mean Corpuscular Hemoglobin Concent 31.7 L Red Cell Distribution Width 14.5 Platelet Count 247 Mean Platelet Volume 10.3 Immature Granulocytes % 0.400 Neutrophils % 64.8 Lymphocytes % 21.5 Monocytes % 7.3 Eosinophils % 4.7 Basophils % 1.3 Nucleated Red Blood Cells % 0.0 Immature Granulocytes # 0.020 Neutrophils # 2.9 Lymphocytes # 1.0 Monocytes # 0.3 Eosinophils # 0.2 Basophils # 0.1 Nucleated Red Blood Cells # 0.0 Sodium Level 137 Potassium Level 4.7 Chloride Level 94 L Carbon Dioxide Level 22 Anion Gap 21 H Blood Urea Nitrogen 106 H Creatinine 16.90 #H Est Glomerular Filtrat Rate mL/min 4 L Glucose Level 95 Hemoglobin A1c 5.1 Calcium Level 8.9 Magnesium Level 2.7 H Total Bilirubin 0.6 Direct Bilirubin 0.00 Indirect Bilirubin 0.6 Aspartate Amino Transf (AST/SGOT) 14 L Alanine Aminotransferase (ALT/SGPT) 9 L Alkaline Phosphatase 71 Creatine Kinase 103 Creatine Kinase Index 1.5 Creatinine Kinase MB (Mass) 1.58 Troponin I 0.227 *H Total Protein 6.5 # Albumin 3.6 Globulin 2.90 Albumin/Globulin Ratio 1.24 Triglycerides Level 145 Cholesterol Level 168 LDL Cholesterol, Calculated 108 HDL Cholesterol 31 Cholesterol/HDL Ratio 5.4 Thyroid Stimulating Hormone (TSH) 0.279 L Home Meds Active Scripts Multivit/Ca Carb/B Cmplx/Fa* (Adrianne-Lauren*) 1 Tab Tab, 1 TAB PO DAILY, #30 TAB Prov:ANA MCKEON NP 06/14/18 Hydralazine Hcl* (Hydralazine Hcl*) 50 Mg Tab, 50 MG PO TID, #90 TAB Prov:ANA MCKEON NP 06/14/18 Nifedipine (Procardia Xl) 30 Mg Tab.er.24, 30 MG PO BID, #60 TAB Prov:ANA MCKEON NP 06/14/18 Carvedilol* (Carvedilol*) 12.5 Mg Tablet, 12.5 MG PO BID, #60 TAB Prov:ANA MCKEON BACK SEWER 06/14/18 Losartan Potassium* (Cozaar*) 50 Mg Tablet, 50 MG PO BID, #60 TAB Prov:ANA MCKEON BACK SEWER 06/14/18 Medications Current Medications IV Flush (NS 3 ml) 3 ml PER PROTOCOL IV ; Start 12/11/18 at 07:00 Aspirin (Aspirin) 81 mg DAILY PO Last administered on 12/12/18 08:26; Admin Dose 81 MG; Start 12/11/18 at 09:00 Nitroglycerin (Nitroglycerin (Sl Tab) 0.4 Mg) 1 tab Q5M PRN SL .CHEST PAIN; Start 12/11/18 at 07:00 Acetaminophen (Tylenol Tab) 650 mg Q6H PRN PO .PAIN 1-3 OR TEMP; Start 12/11/18 at 07:00 Heparin Sodium (Porcine) (Heparin (5000 Units/1ml)) 5,000 unit Q12 SC Last administered on 12/11/18 20:26; Admin Dose 5,000 UNIT; Start 12/11/18 at 09:00 Losartan Potassium (Cozaar) 50 mg BID PO Last administered on 12/12/18 08:25; Admin Dose 50 MG; Start 12/11/18 at 09:00 Multivit/Ca Carb/ B Cmplx/FA/Prenat (Adrianne-Lauren) 1 tab DAILY PO Last administered on 12/12/18 08:25; Admin Dose 1 TAB; Start 12/11/18 at 09:00 Hydralazine HCl (Apresoline) 50 mg TID PO Last administered on 12/12/18 08:26; Admin Dose 50 MG; Start 12/11/18 at 09:00 Carvedilol (Coreg) 25 mg BID PO Last administered on 12/12/18 08:25; Admin Dose 25 MG; Start 12/11/18 at 09:00 Nifedipine (Procardia Xl) 60 mg BID PO Last administered on 12/12/18 08:26; Admin Dose 60 MG; Start 12/11/18 at 09:00 Atorvastatin Calcium (Lipitor) 80 mg HS PO Last administered on 12/11/18 20:15; Admin Dose 80 MG; Start 12/11/18 at 21:00 Clonidine (Catapres) 0.1 mg TID PO Last administered on 12/12/18at 08:25; Admin Dose 0.1 MG; Start 12/11/18 at 13:00 Clonidine (Catapres) 0.2 mg Q6H PRN PO SBP>160; Start 12/11/18 at 10:30 Albumin Human 100 ml @ 100 mls/hr WITH DIALYSIS PRN IV SBP <90 DURING DIALYSIS; Start 12/11/18 at 15:00 Sodium Chloride (NS) -To prime the dialy... DIRECTED FOR HD PRN IV HD; Start 12/11/18 at 15:00 Assessment/Plan Hospital Course (Demo Recall) 1. Mildly abnormal troponin: Most likely secondary to subendocardial injury due to renal failure, fluid overload, hypertension 2. Dyspnea multifactorial probably secondary to fluid overload 3. Hypertension hypertensive heart disease 4. Renal failure on dialysis 5. Anemia Recommendations: Follow-up with renal recommendation regarding hemodialysis. Aspirin for the time being Coreg was increased. Continued blood pressure control Aggressive risk factor modifications Thank you for his referral. Continue to follow along with you HERMANN MOTA MD [facility] HERMANN MOTA MD Dec 12, 2018 18:02
[2018-12-12] MEDS: ATORVASTATIN 80 MG TAB PO SCH (20:59)
[2018-12-13] VITALS: PULSE 93
[2018-12-13 00:01] VITALS: BP 133/73; PULSE 94; RESP 18
[2018-12-13 04:00] VITALS: PULSE 92
[2018-12-13 07:31] VITALS: BP 139/82; PULSE 97; RESP 20
[2018-12-13 08:08] VITALS: PULSE 102
[2018-12-13] MEDS: MULTIVIT/CA CARB/B CMPLX/FA TAB PO SCH (08:13)
[2018-12-13] MEDS: ASPIRIN 81 MG TAB PO SCH (08:14)
[2018-12-13] MEDS: LOSARTAN 50 MG TAB PO SCH (08:14)
[2018-12-13] MEDS: HEPARIN 5,000 UNIT/1 ML VIAL SC SCH (08:14)
[2018-12-13] MEDS: NIFEdipine (XL) 60 MG TAB PO SCH (08:14)
--- NOTE | 2018-12-13 08:47 | CONS ---
Consult Date/Type/Reason Admit Date/Time Dec 11, 2018 at 05:31 Initial Consult Date 12/11/18 Type of Consultation: cv Requesting Provider: FRANK ALBERTS NP Date/Time of Note DATE: 12/13/18 TIME: 08:45 Subjective Interventional cardiology follow-up progress Subjective: Case discussed with the staff and telemetry was reviewed. Patient remains sinus rhythm Patient denies any chest pain or pressure to me. His breathing has significantly improved and he wants to go home Objective: General: no acute distress HEENT: NC/AT. pupils are equal. round. NECK: NO JVD. no stridor. CV: RRR. systolic murmur; no gallop or rubs. PULM: no wheezing or rhonchi. GI: SOFT, NT, ND, no rebound or guarding Extremity: trace B/L LE edema. no clubbing. neuro: awake and alert, OX3. Psych: calm and pleasant rectal: deferred : normal EKG sinus tachycardia. Nonspecific ST abnormalities Chest x-ray showed. Bilateral hazy and patchy opacities could represent pulmonary edema and/or multifocal pneumonia. Mild to moderate cardiomegaly. Echocardiogram which was personally reviewed has shown: There is mild enlargement of left atrium. Aortic cusps appear mildly calcified. Mild aortic valve regurgitation. Mitral valve leaflets appear mildly thickened. Mild mitral leaflet calcification. Mild to moderate mitral valve regurgitation. The regurgitation jet is eccentrically directed which may underestimate the severity of mitral regurgitation. Normal appearance of the tricuspid valve. Estimated peak PA systolic pressure 58 mmHg. There is mild tricuspid regurgitation. Lower limits of normal systolic function. Normal left ventricular cavity size. Sigmoid septum. Ejection fraction is visually estimated at 50 %. Tissue Doppler/Mitral Doppler indices are consistent with restrictive physiology with markedly elevated left atrial pressure (Stage III-IV diastolic dysfunction). Objective Vitals Vital Signs Date Temp Pulse Resp B/P (MAP) Pulse Ox O2 O2 Flow FiO2 Time Delivery Rate 12/13/18 102 08:08 12/13/18 97.2 20 139/82 98 Room Air 07:31 (101) 12/11/18 4.0 08:08 12/11/18 50 02:47 Intake and Output 12/12/18 12/12/18 12/13/18 1414:59 22:59 06:59 IntakeIntake Total 700 ml 500 ml OutputOutput Total 3600 ml BalanceBalance -3600 ml 700 ml 500 ml Results/Medications Result Diagram: 12/12/18 0631 12/13/18 0634 Results 24 hrs Laboratory Tests Test 12/13/18 06:34 Sodium Level 136 Potassium Level 4.2 Chloride Level 94 L Carbon Dioxide Level 26 Anion Gap 16 H Blood Urea Nitrogen 58 #H Creatinine 11.97 #H Est Glomerular Filtrat Rate mL/min 6 L Glucose Level 93 Calcium Level 8.8 Home Meds Active Scripts Multivit/Ca Carb/B Cmplx/Fa* (Adrianne-Lauren*) 1 Tab Tab, 1 TAB PO DAILY, #30 TAB Prov:ANA MCKEON NP 06/14/18 Hydralazine Hcl* (Hydralazine Hcl*) 50 Mg Tab, 50 MG PO TID, #90 TAB Prov:ANA MCKEON NP 06/14/18 Nifedipine (Procardia Xl) 30 Mg Tab.er.24, 30 MG PO BID, #60 TAB Prov:ANA MCKEON NP 06/14/18 Carvedilol* (Carvedilol*) 12.5 Mg Tablet, 12.5 MG PO BID, #60 TAB Prov:ANA MCKEON NP 06/14/18 Losartan Potassium* (Cozaar*) 50 Mg Tablet, 50 MG PO BID, #60 TAB Prov:ANA MCKEON NP 06/14/18 Medications Current Medications IV Flush (NS 3 ml) 3 ml PER PROTOCOL IV ; Start 12/11/18 at 07:00 Aspirin (Aspirin) 81 mg DAILY PO Last administered on 12/13/18at 08:14; Admin Dose 81 MG; Start 12/11/18 at 09:00 Nitroglycerin (Nitroglycerin (Sl Tab) 0.4 Mg) 1 tab Q5M PRN SL .CHEST PAIN; Start 12/11/18 at 07:00 Acetaminophen (Tylenol Tab) 650 mg Q6H PRN PO .PAIN 1-3 OR TEMP; Start 12/11/18 at 07:00 Heparin Sodium (Porcine) (Heparin (5000 Units/1ml)) 5,000 unit Q12 SC Last administered on 12/11/18at 20:26; Admin Dose 5,000 UNIT; Start 12/11/18 at 09:00 Losartan Potassium (Cozaar) 50 mg BID PO Last administered on 12/13/18 08:14; Admin Dose 50 MG; Start 12/11/18 at 09:00 Multivit/Ca Carb/ B Cmplx/FA/Prenat (Adrianne-Lauren) 1 tab DAILY PO Last adm inistered on 12/13/18 08:13; Admin Dose 1 TAB; Start 12/11/18 at 09:00 Hydralazine HCl (Apresoline) 50 mg TID PO Last administered on 12/12/18 21:00; Admin Dose 50 MG; Start 12/11/18 at 09:00 Carvedilol (Coreg) 25 mg BID PO Last administered on 12/12/18 21:01; Admin Dose 25 MG; Start 12/11/18 at 09:00 Nifedipine (Procardia Xl) 60 mg BID PO Last administered on 12/13/18 08:14; Admin Dose 60 MG; Start 12/11/18 at 09:00 Atorvastatin Calcium (Lipitor) 80 mg HS PO Last administered on 12/12/18 20:59; Admin Dose 80 MG; Start 12/11/18 at 21:00 Clonidine (Catapres) 0.1 mg TID PO Last administered on 12/12/18 21:00; Admin Dose 0.1 MG; Start 12/11/18 at 13:00 Clonidine (Catapres) 0.2 mg Q6H PRN PO SBP>160; Start 12/11/18 at 10:30 Albumin Human 100 ml @ 100 mls/hr WITH DIALYSIS PRN IV SBP <90 DURING DIALYSIS; Start 12/11/18 at 15:00 Sodium Chloride (NS) -To prime the dialy... DIRECTED FOR HD PRN IV HD; Start 12/11/18 at 15:00 Assessment/Plan Hospital Course (Demo Recall) 1. Mildly abnormal troponin: Most likely secondary to subendocardial injury due to renal failure, fluid overload, hypertension 2. Dyspnea multifactorial probably secondary to fluid overload 3. Hypertension hypertensive heart disease 4. Renal failure on dialysis 5. Anemia Recommendations: Follow-up with renal recommendation regarding hemodialysis. Aspirin for the time being Coreg was increased. Continued blood pressure control Aggressive risk factor modifications pt has been given my information to contact my office for outpt follow up Thank you for his referral. Continue to follow along with you HERMANN MOTA MD [facility] HERMANN MOTA MD Dec 13, 2018 08:47
--- NOTE | 2018-12-13 10:37 | CONS ---
Assessment/Plan Assessment/Plan Assessment/Plan (Daily) 1. Acute NSTEMI 2. acute fluid overload with pulmonary edema 3. ESRD on HD TTS schedule 4. H/o HTN 5. H/o HL 6. H/o Anemia of ESRD 7. accelerated HTN Plan : HD yesterday through Right upper extremity AVF Coreg 25 mg BID, Clonidine 0.1mg PO TID, Losartan 50mg BID, hydralazine 50mg TID and Nifedipine XL 60mg BID, IV hydralazine prn NSTEMI management as per cardiology will keep pt on TTS schedule [place] [facility] Thanks for consultation, will follow up Patient seen in collaboration with Dr Juan Nogueira. Dw staff Consultation Date/Type/Reason Admit Date/Time Dec 11, 2018 at 05:31 Initial Consult Date 12/11/18 Type of Consult NEPHROLOGY Requesting Provider: FRANK ALBERTS NP Date/Time of Note DATE: 12/13/18 TIME: 10:36 24 HR Interval Summary Free Text/Dictation nad HD today afebrile BP stable feels better anticipate discharge today no new events reported last night per staff Constitutional: improved Detailed Summary Eyes: no complaints ENT: no complaints Respiratory: no complaints Cardiovascular: no complaints Gastrointestinal: no complaints Genitourinary: no complaints Musculoskeletal: no complaints Skin: no complaints Neurologic: no complaints Endocrine: no complaints Lymphatic: no complaints Immunologic: no complaints Exam/Review of Systems Exam Vitals Vital Signs Date Temp Pulse Resp B/P (MAP) Pulse Ox O2 O2 Flow FiO2 Time Delivery Rate 12/13/18 102 08:08 12/13/18 97.2 20 139/82 98 Room Air 07:31 (101) 12/11/18 4.0 08:08 12/11/18 50 02:47 Intake and Output 12/12/18 12/12/18 12/13/18 1515:00 23:00 07:00 IntakeIntake Total 700 ml 500 ml OutputOutput Total 3600 ml BalanceBalance -3600 ml 700 ml 500 ml Constitutional: alert, oriented, well developed Psych: nl mood/affect Head: normocephalic Eyes: nl lids, nl sclera ENMT: nl external ears & nose Neck: non-tender Respiratory: clear to auscultation Cardiovascular: nl pulses, other Gastrointestinal: soft, non-tender Musculoskeletal: muscle weakness Extremities: normal pulses Neurological: nl mental status, nl speech Skin: nl turgor Results Result Diagram: 12/12/18 0631 12/13/18 0634 Results 24hrs Laboratory Tests Test 12/13/18 06:34 Sodium Level 136 Potassium Level 4.2 Chloride Level 94 L Carbon Dioxide Level 26 Anion Gap 16 H Blood Urea Nitrogen 58 #H Creatinine 11.97 #H Est Glomerular Filtrat Rate mL/min 6 L Glucose Level 93 Calcium Level 8.8 Medications Medication Current Medications IV Flush (NS 3 ml) 3 ml PER PROTOCOL IV ; Start 12/11/18 at 07:00 Aspirin (Aspirin) 81 mg DAILY PO Last administered on 12/13/18at 08:14; Admin Dose 81 MG; Start 12/11/18 at 09:00 Nitroglycerin (Nitroglycerin (Sl Tab) 0.4 Mg) 1 tab Q5M PRN SL .CHEST PAIN; Start 12/11/18 at 07:00 Acetaminophen (Tylenol Tab) 650 mg Q6H PRN PO .PAIN 1-3 OR TEMP; Start 12/11/18 at 07:00 Heparin Sodium (Porcine) (Heparin (5000 Units/1ml)) 5,000 unit Q12 SC Last administered on 12/11/18at 20:26; Admin Dose 5,000 UNIT; Start 12/11/18 at 09:00 Losartan Potassium (Cozaar) 50 mg BID PO Last administered on 12/13/18at 08:14; Admin Dose 50 MG; Start 12/11/18 at 09:00 Multivit/Ca Carb/ B Cmplx/FA/Prenat (Adrianne-Lauren) 1 tab DAILY PO Last administered on 12/13/18at 08:13; Admin Dose 1 TAB; Start 12/11/18 at 09:00 Hydralazine HCl (Apresoline) 50 mg TID PO Last administered on 12/12/18at 21:00; Admin Dose 50 MG; Start 12/11/18 at 09:00 Carvedilol (Coreg) 25 mg BID PO Last administered on 12/12/18at 21:01; Admin Dose 25 MG; Start 12/11/18 at 09:00 Nifedipine (Procardia Xl) 60 mg BID PO Last administered on 12/13/18at 08:14; Admin Dose 60 MG; Start 4/15/19 at 09:00 Atorvastatin Calcium (Lipitor) 80 mg HS PO Last administered on 12/12/18at 20:59; Admin Dose 80 MG; Start 12/11/18 at 21:00 Clonidine (Catapres) 0.1 mg TID PO Last administered on 12/12/18at 21:00; Admin Dose 0.1 MG; Start 12/11/18 at 13:00 Clonidine (Catapres) 0.2 mg Q6H PRN PO SBP>160; Start 12/11/18 at 10:30 Albumin Human 100 ml @ 100 mls/hr WITH DIALYSIS PRN IV SBP <90 DURING DIALYSIS; Start 12/11/18 at 15:00 Sodium Chloride (NS) -To prime the dialy... DIRECTED FOR HD PRN IV HD; Start 12/11/18 at 15:00 DANIELLA CLINE Dec 13, 2018 10:37
--- NOTE | 2018-12-13 10:55 | PDOCDIS ---
Discharge Instructions CONDITION [id number] Patient Condition: [id number] Stable HOME CARE INSTRUCTIONS: [id number] Your diet recommendation is: [id number] renal diet FOLLOW UP/APPOINTMENTS Follow-up Plan Follow-up with outpatient hemodialysis clinic for your next scheduled dialysis which is tomorrow. Follow-up with primary care physician in 1 week. FRANK ALBERTS NP Dec 13, 2018 10:55
[2018-12-13] MEDS ORDERED: NIFE60TA2 PO (10:58)
[2018-12-13] MEDS ORDERED: CLON0.1T14 PO (10:58)
[2018-12-13] MEDS ORDERED: ASPI-831 PO (10:58)
[2018-12-13] MEDS ORDERED: CARV25TA79 PO (10:58)
--- NOTE | 2018-12-13 11:04 | DS ---
Date/Time of Note Date/Time of Note DATE: 12/13/18 TIME: 11:00 Discharge Summary Admission/Discharge Info Admit Date/Time Dec 11, 2018 at 05:31 Discharge Date/Time Discharge Diagnosis 1. Hypertensive emergency.stable 2. Troponin leak, likely type B in light of ESRD/poor renal clearance. 3. Pulmonary edema/ volume overload 2/2 esrd/DD.stable 4. ESRD, hemodialysis (,,) -Access: Right AV shunt, good bruit/thrill 5. Anemia of ESRD 6.Stage III-IV Diastolic Dysfunction Patient Condition: Stable Consults DR.Patel Potts Procedures 12/11/18.TTE Conclusions: There is mild enlargement of left atrium. Aortic cusps appear mildly calcified. Mild aortic valve regurgitation. Mitral valve leaflets appear mildly thickened. Mild mitral leaflet calcification. Mild to moderate mitral valve regurgitation. The regurgitation jet is eccentrically directed which may underestimate the severity of mitral regurgitation. Normal appearance of the tricuspid valve. Estimated peak PA systolic pressure 58 mmHg. There is mild tricuspid regurgitation. Lower limits of normal systolic function. Normal left ventricular cavity size. Sigmoid septum. Ejection fraction is visually estimated at 50 %. Tissue Doppler/Mitral Doppler indices are consistent with restrictive physiology with markedly elevated left atrial pressure (Stage III-IV diastolic dysfunction). Electronically Signed By: Antonio Oneill 2018-12-11 14:20:12 PDT 12/11/18 CHEST xRAY IMPRESSION: Bilateral hazy and patchy opacities could represent pulmonary edema and/or multifocal pneumonia. Mild to moderate cardiomegaly. Hx of Present Illness 28-year-old -[place] male with a past medical history of end-stage renal disease on hemodialysis // schedule, hypertension, anemia of ESRD, admitted with shortness of breath, persistent hypertension since Tuesday after dialysis. Patient denied chest pain, palpitation, nausea, vomiting, abdominal pain, diaphoresis, loss of consciousness, dizziness, fever, chills, cough, hemoptysis, diarrhea or other constitutional symptoms. Initial labs showed white count 11,100, hemoglobin 10.8, hematocrit 34, BUN 77, creatinine 14.52, and elevated troponin 0 0.228. Chest x-ray showed moderate cardiomegaly with pulmonary edema. Vital signs heart rate 116, blood pressure 227/144 on arrival. No fevers. Hospital Course 28 yo AA male w/htn, ESRD/HD (,th,) here with shortness of breath and pers istent hypertension 3-day duration... found to have pulmonary edema/volume overload, hypertensive emergency, requiring hemodialysis. Patient's blood pressure was managed with uptitrated dose of Coreg, calcium channel blockers. He was also added on Catapres. Continued hydralazine. Blood pressure remained stable. Patient was being followed by vacuum frame operator for ultrafiltration/fluid removal. Patient was also noted with troponin leak for which he had cardiology evaluation and likely type B in light of ESRD and poor renal clearance. Patient did not have any chest pain. He was given aspirin prophylactically. Patient remains clinically stable in terms of volume overload. He did not have any further symptoms. Patient's echo also showed stage III-IV diastolic dysfunction and he was continued on beta-blockers. At this time, he is stable from cardiac and nephrology standpoint for outpatient follow-up. Patient is eager to be discharged. His labs and vital signs remained stable. Patient is asymptomatic. Approximately 60 m spent on coordinating the discharge on this patient. Patient was seen in collaboration with Dr. Barajas. Home Meds Active Scripts Aspirin (Aspirin) 81 Mg Chew, 81 MG PO DAILY, #30 TAB Prov:ALBERTSFRANK V. MOLDING AND TRIM INSTALLER 12/13/18 Nifedipine (Procardia Xl) 60 Mg Tab.er.24, 60 MG PO BID, #60 TAB Prov:ALBERTSFRANK V. MOLDING AND TRIM INSTALLER 12/13/18 Clonidine Hcl* (Catapres*) 0.1 Mg Tablet, 0.1 MG PO TID, #90 TAB Prov:FRANK ALBERTS V. [employer]OLD[employer] INSTALLER 12/13/18 Carvedilol* (Carvedilol*) 25 Mg Tablet, 25 MG PO BID, #60 TAB Prov:ALBERTSFRANK V. MOLDING AND TRIM INSTALLER 12/13/18 Multivit/Ca Carb/B Cmplx/Fa* (Adrianne-Lauren*) 1 Tab Tab, 1 TAB PO DAILY, #30 TAB Prov:ANA MCKEON MOLDING AND [employer] INSTALLER 06/14/18 Hydralazine Hcl* (Hydralazine Hcl*) 50 Mg Tab, 50 MG PO TID, #90 TAB Prov:ANA MCKEON [employer]ING AND [employer] INSTALLER 06/14/18 Losartan Potassium* (Cozaar*) 50 Mg Tablet, 50 MG PO BID, #60 TAB Prov:ANA MCKEON NP 06/14/18 Discontinued Scripts Nifedipine (Procardia Xl) 30 Mg Tab.er.24, 30 MG PO BID, #60 TAB Prov:ANA MCKEON NP 06/14/18 Carvedilol* (Carvedilol*) 12.5 Mg Tablet, 12.5 MG PO BID, #60 TAB Prov:ANA MCKEON NP 06/14/18 Follow-up Plan Follow-up with outpatient hemodialysis clinic for your next scheduled dialysis which is tomorrow. Follow-up with primary care physician in 1 week. Primary Care Provider Care Physician No Primary Pending Labs Laboratory Tests Test 12/13/18 06:34 Sodium Level 136 mmol/L (135-144) Potassium Level 4.2 mmol/L (3.5-5.1) Chloride Level 94 mmol/L (97-110) Carbon Dioxide Level 26 mmol/L (21-31) Anion Gap 16 (5-13) Blood Urea Nitrogen 58 mg/dl (7-20) Creatinine 11.97 mg/dl (0.61-1.24) Est Glomerular Filtrat Rate mL/min 6 mL/min (>60) Glucose Level 93 mg/dl (70-220) Calcium Level 8.8 mg/dl (8.4-10.2) FRANK ALBERTS NP Dec 13, 2018 11:04
[2018-12-13 11:42] VITALS: BP 127/63; PULSE 99
== END 2018-12-13 13:20 | disposition home or self-care (01) | DRG 304 ==
LOC: E/R 01:50 → TEL 05:31 → EDBEDREQ 05:39
PROVIDERS: ADMIT Internal Medicine; ATTEND Internal Medicine
PROC: 5A1D70Z Performance of Urinary Filtration, Intermittent, Less than 6 Hours Per Day (ICD-10-PCS; principal; 2018-12-12)
DX: I16.1 Hypertensive emergency (principal); N18.6 End stage renal disease; J81.0 Acute pulmonary edema; I50.30 Unspecified diastolic (congestive) heart failure; I13.2 Hypertensive heart and chronic kidney disease with heart failure and with stage 5 chronic kidney disease, or end stage renal disease; D63.1 Anemia in chronic kidney disease; R00.0 Tachycardia, unspecified; R79.89 Other specified abnormal findings of blood chemistry; Z99.2 Dependence on renal dialysis
CPT/HCPCS: 71045; 80048; 80053; 80061; 82550; 82553; 83036; 83605; 83735; 84443; 84484; 85025; 85610; 85730; 87340; 90935; 93005; 93306; 94660; J0360; J1644

== ENCOUNTER 2019-02-13 21:12 | Inpatient (IN) | payer MEDICARE ==
[~2019-02-13] VITALS: Ht 182.9 cm; Wt 71.7 kg
[~2019-02-13 21:12] MED LIST changes: +ASPI-831 PO; -CARV12.579 PO; +CARV25TA79 PO; +CLON0.1T14 PO; -NIFE30TA2 PO; +NIFE60TA2 PO
[2019-02-13 21:41] VITALS: Ht 182.9 cm; Wt 71.7 kg
[2019-02-14] VITALS (23 sets, daily range): BP systolic 157–185; BP diastolic 86–119; PULSE 84–129; RESP 18–20
[2019-02-14] MEDS ORDERED: NA BICARBONATE 8.4% 50 ML SYG IV STA (00:53)
[2019-02-14] MEDS ORDERED: CA CHLORIDE 10% 10 ML SYRINGE IV STA (00:53)
[2019-02-14] MEDS ORDERED: INSULIN REGULAR, HUMAN 100 UNIT/1 ML 3ML VIAL IVP STA (00:53)
[2019-02-14] MEDS ORDERED: SODIUM POLYSTYRENE 15 GM KIT (POWDER + SORBITOL) PO STA (00:53)
[2019-02-14] MEDS ORDERED: ALBUTEROL 0.5% (NEB) 2.5 MG/0.5 ML AMP INH STA (00:53)
--- NOTE | 2019-02-14 01:26 | HP ---
Date/Time of Note Date/Time of Note DATE: 02/14/19 TIME: 01:25 Assessment/Plan VTE Prophylaxis SCD applied (from Nsg): Yes Pharmacological prophylaxis: NA/contraindicated Pharm contraindication: low risk/ambulating Lines/Catheters IV Catheter Type (from Nrsg): Saline Lock Assessment/Plan Hospital Course This is a 28-year-old male being admitted to the telemetry floor for: #1 uremia: Patient presented hyperkalemia 6.5. And a BUN of 126 and creatinine of 23 which are significantly increased from previous results in November 2018. Patient did receive treatment for hyperkalemia in the emergency department with albuterol insulin and Kayexalate. I requested the emergency department to cons ult Dr. Nogueira for dialysis I did receive a call from Dr. Nogueira who stated that he is out of town so we could pass the consult to Dr. Gould who I consulted. #2 hyperkalemia: Secondary to missed dialysis. Treatment in the ER with insulin, Kayexalate, albuterol. Urgent dialysis #3 Accelerated hypertension: Likely secondary to increased volume. Dialysis has been ordered. We will put patient on medications on board, PRN hydralazine/labetalol. #4 anemia of end-stage renal disease: Hemoglobin is 7 which is significantly lower than previous one in November 2009. Will assess for any signs of bleeding. Likely secondary to end-stage renal disease, Procrit/Epogen as per nephro. #5 elevated BNP In the setting of end-stage renal disease: Will assess heart function morphology with an echocardiogram. #6 URI: Patient is afebrile, he has a normal white blood cell count. Chest x- ray does not show any infiltrates. This likely is viral nature. Will monitor closely. #7 DVT GI prophylaxis: Heparin, no GI prophylaxis indicated Further treatment strategy will be implemented as per the clinical course. Result Diagram: 02/13/19231602/13/192316 Results 24hrs Laboratory Tests Test 02/13/19 23:17 02/14/19 01:21 White Blood Count 3.4 #L Red Blood Count 2.56 #L Hemoglobin 7.5 #L Hematocrit 22.7 #L Mean Corpuscular Volume 88.7 Mean Corpuscular Hemoglobin 29.3 Mean Corpuscular Hemoglobin Concent 33.0 Red Cell Distribution Width 13.0 Platelet Count 131 #L Mean Platelet Volume 9.9 Immature Granulocytes % 0.300 Neutrophils % 62.8 Lymphocytes % 21.1 Monocytes % 13.4 H Eosinophils % 1.8 Basophils % 0.6 Nucleated Red Blood Cells % 0.0 Immature Granulocytes # 0.010 Neutrophils # 2.1 Lymphocytes # 0.7 L Monocytes # 0.5 Eosinophils # 0.1 Basophils # 0.0 Nucleated Red Blood Cells # 0.0 Sodium Level 134 L Potassium Level 6.5 *H Chloride Level 97 Carbon Dioxide Level 17 L Anion Gap 20 H Blood Urea Nitrogen 126 H Creatinine 23.98 H Est Glomerular Filtrat Rate mL/min 3 L Glucose Level 86 Calcium Level 8.7 Total Bilirubin 0.3 Direct Bilirubin 0.00 Indirect Bilirubin 0.3 Aspartate Amino Transf (AST/SGOT) 19 Alanine Aminotransferase (ALT/SGPT) 22 Alkaline Phosphatase 78 Troponin I 0.049 B-Type Natriuretic Peptide 39740 H Total Protein 7.0 Albumin 4.3 Globulin 2.70 Albumin/Globulin Ratio 1.59 Bedside Glucose 72 HPI/ROS Admit Date/Time Admit Date/Time Hx of Present Illness Chief complaint: Missed dialysis This is a 28-year-old male with a past medical history of hypertension, end- stage renal disease on HD Tuesday who presents to the emergency department after being sent in by dialysis center. Patient reports that he missed 2 dialysis sessions because he was sick and could not go to the dialysis center. He states that his brother was sick at home first and then he developed a cough and runny nose. He denies any fevers or chest pain no shortness of breath. He reports some mild itching he states that his illness is getting better now. He is usually compliant with his dialysis he says. His dialysis doctor is Dr. Brown. Allergies: NKDA Medications: See OCT ROS Const: As per HPI Eyes : No pain discharge or redness or change in visual acuity ENT: No pain, sore throat, congestion, congestion, dysphagia or discharge Respiratory: As per HPI Cardiovascular: No chest pain, palpitation, PND, or edema GI : no change in appetite, abdominal pain, nausea, vomiting, diarrhea, constipation, or change in the color his stool Genitourinary: No dysuria, hematuria, flank pain , discharge or CVA tenderness Musculoskeletal: No joint pain, back pain, neck pain, restricted range of motion in neck or joints Skin: No rash, bruising or hives Neuro: No headache, dizziness, syncope, seizure, focal weakness Endocrine: No polyuria, polydipsia, temperature intolerance Psych: No hallucination, depression, anxiety or suicidal ideation PMH/Family/Social Past Medical History End-stage renal disease on HD Tuesday Hypertension Chronic anemia Medications Current Medications Ondansetron HCl (Zofran Inj) 4 mg ER BRIDGE PRN IV NAUSEA/VOMITING; Start 02/14/19 at 01:30; Stop 02/15/19 at 01:29 Acetaminophen (Tylenol Tab) 650 mg ER BRIDGE PRN PO .MILD PAIN 1-3 OR TEMP; Start 02/14/19 at 01:30; Stop 02/15/19 at 01:29 IV Flush (NS 3 ml) 3 ml PER PROTOCOL IV ; Start 02/14/19 at 01:30; Status UNV Ondansetron HCl (Zofran Inj) 4 mg Q6H PRN IV NAUSEA/VOMITING; Start 02/14/19 at 01:30; Status UNV Acetaminophen (Tylenol Tab) 650 mg Q6H PRN PO .PAIN 1-3 OR TEMP; Start 02/14/19 at 01:30; Status UNV Docusate Sodium (Colace) 100 mg Q12H PRN PO .CONSTIPATION; Start 02/14/19 at 01:30; Status UNV Bisacodyl (Dulcolax) 5 mg DAILY PRN PO .CONSTIPATION; Start 02/14/19 at 01:30; Status UNV Heparin Sodium (Porcine) (Heparin (5000 Units/1ml)) 5,000 unit Q8 SC ; Start 02/14/19 at 01:30; Status UNV Coded Allergies: No Known Allergy (Unverified , 02/14/19) Past Surgical History Right upper extremity AV fistula Past Surgical Hx: other Family History Significant Family History: no pertinent family hx Social History Alcohol Use: none Smoking Status: Unknown if ever smoked Drug Use: marijuana Exam/Review of Systems Vital Signs Vitals Vital Signs Date Temp Pulse Resp B/P (MAP) Pulse Ox O2 O2 Flow FiO2 Time Delivery Rate 02/13/19 98.3 97 18 113/56 100 21:41 (75) Exam Exam General: Patient is a pleasant male currently lying in bed in no acute distress HEENT: Atraumatic, normocephalic. The pupils are equal, round and reactive. Extraocular motor are intact Neck: Supple with full range of motion. No rigidity or meningismus Chest: Nontender Lungs: Clear to auscultation bilaterally no crackles rales or wheezing Heart: Normal S1-S2, Regular rhythm and rate. No murmur, S3, or S4 Abdomen: Soft , nontender, nondistended , bowel sounds are present. No guarding no rebound tenderness , No masses or organomegaly. No costovertebral temporal angle mass Extremities: Normal to inspection, no edema no cyanosis Vascular: Right upper extremity AV fistula Neurologic: Normal mental status, speech normal, cranial nerves II through XII are intact, motor and sensory are intact, Additional Comments PROCEDURE: Portable chest x-ray. CLINICAL INDICATION: 28 years of age, male. Chest pain TECHNIQUE: Portable AP view of the chest. COMPARISON: Chest x-ray January 10, 2019 FINDINGS: Medical devices: None. Mediastinum: Moderate diffuse globular enlargement of the cardiopericardial silhouette is similar to the prior exam. Normal aortic contour. Lungs: Lungs are clear. Pleura: Negative for pleural effusion or pneumothorax. Bones: There is chronic osteolysis of bilateral distal clavicles that is u nchanged from the prior exam. No new bony abnormality. Additional comment: None. IMPRESSION: 1. Moderate enlarged cardiopericardial silhouette is similar to the prior exam. 2. Chronic osteolysis of bilateral distal clavicles with widening of the acromioclavicular joints is unchanged from the prior exam and may be due to hyperparathyroidism or renal osteodystrophy. RPTAT: HCTS Physician Israel Date Time Electronically viewed and signed by Physician Israel on 02/14/2019 02:12 CS/ CC: ROMELIA PARTIDA [id number] ROBERTO POLO Feb 14, 2019 01:26
[2019-02-14] MEDS ORDERED: NACL 0.9% 3 ML SYG IV SCH (01:30)
[2019-02-14] MEDS ORDERED: ONDANSETRON 4 MG INJ IV PRN ×2 (01:30)
[2019-02-14] MEDS ORDERED: DOCUSATE SODIUM 100 MG CAP PO PRN (01:30)
[2019-02-14] MEDS ORDERED: ACETAMINOPHEN 325 MG TAB PO PRN ×2 (01:30)
[2019-02-14] MEDS ORDERED: BISACODYL (EC) 5 MG TAB PO PRN (01:30)
[2019-02-14] MEDS: HEPARIN 5,000 UNIT/1 ML VIAL SC SCH ×3 (01:52→17:30)
[2019-02-14] MEDS ORDERED: hydrALAzine 20 MG INJ IV ONE (02:00)
[2019-02-14] MEDS: NIFEdipine (XL) 60 MG TAB PO SCH ×3 (02:07→21:00)
[2019-02-14] MEDS ORDERED: hydrALAzine 20 MG INJ IV PRN ×2 (03:00)
[2019-02-14] MEDS ORDERED: DEXTROSE 50% 50 ML SYRINGE ONE (03:44)
[2019-02-14] MEDS ORDERED: DEXTROSE 50% 50 ML SYRINGE IV ONE ×2 (04:00→05:00)
--- NOTE | 2019-02-14 04:06 | ERD ---
ER Documentation Chief Complaint Chief Complaint MISSED SAT/TUES DIALYSIS, DIALYSIS SENT PT HERE FOR EVAL, + FATIGUE HPI Is a 28-year-old male comes in with complaints of fatigue and shortness of breath. Is a dialysis patient missed his last dialysis sessions. Denies any nausea vomiting. Denies any chest pain. Mild associated shortness of breath. Denies any other current issues. ROS All systems reviewed and are negative except as per history of present illness. Medications Home Meds Active Scripts Aspirin (Aspirin) 81 Mg Chew, 81 MG PO DAILY, #30 TAB Prov:ALBERTSLEOA V. P[employer]ING [employer]ERIALS INSPECTOR 12/13/18 Nifedipine (Procardia Xl) 60 Mg Tab.er.24, 60 MG PO BID, #60 TAB Prov:ALBERTSLEOA V. P[employer] INSPECTOR 12/13/18 Clonidine Hcl* (Catapres*) 0.1 Mg Tablet, 0.1 MG PO TID, #90 TAB Prov:ALBERTSLEOA V. P[employer]ERIALS INSPECTOR 12/13/18 Carvedilol* (Carvedilol*) 25 Mg Tablet, 25 MG PO BID, #60 TAB Prov:ALBERTSFRANK V. P[employer]AGING MATERIALS INSPECTOR 12/13/18 Hydralazine Hcl* (Hydralazine Hcl*) 50 Mg Tab, 50 MG PO TID, #90 TAB Prov:ANA MCKEON NP 06/14/18 Discontinued Scripts Multivit/Ca Carb/B Cmplx/Fa* (Adrianne-Lauren*) 1 Tab Tab, 1 TAB PO DAILY, #30 TAB Prov:ANA MCKEON NP 06/14/18 Losartan Potassium* (Cozaar*) 50 Mg Tablet, 50 MG PO BID, #60 TAB Prov:ANA MCKEON NP 06/14/18 Allergies Allergies: Coded Allergies: No Known Allergy (Unverified , 02/14/19) PMhx/Soc History of Surgery: No Anesthesia Reaction: No Hx Neurological Disorder: No Hx Respiratory Disorders: No Hx Cardiac Disorders: No Hx Psychiatric Problems: Yes Hx Miscellaneous Medical Probl: Yes (CKD) Hx Alcohol Use: No Hx Substance Use: No Hx Tobacco Use: Yes Smoking Status: Current every day smoker Physical Exam Vitals Vital Signs Date Temp Pulse Resp B/P (MAP) Pulse Ox O2 O2 Flow FiO2 Time Delivery Rate 02/14/19 107 20 181/103 97 Room Air 03:40 (129) 02/14/19 99.5 15 15 200/120 100 Room Air 02:05 (146) 02/14/19 82 20 98 21 01:59 02/13/19 98.3 97 18 113/56 100 21:41 (75) Physical Exam Const: No acute distress Head: Atraumatic Eyes: Normal Conjunctiva ENT: Normal External Ears, Nose and Mouth. Neck: Full range of motion. No meningismus. Resp: Clear to auscultation bilaterally Cardio: Regular rate and rhythm, no murmurs Abd: Soft, non tender, non distended. Normal bowel sounds Skin: No petechiae or rashes Back: No midline or flank tenderness Ext: No cyanosis, or edema Neur: Awake and alert Psych: Normal Mood and Affect Result Diagram: 02/13/19 2317 02/14/19 0230 Results 24 hrs Laboratory Tests Test 02/13/19 23:17 02/14/19 01:21 02/14/19 02:30 02/14/19 03:40 White Blood Count 3.4 10^3/ul Red Blood Count 2.56 10^6/ul Hemoglobin 7.5 g/dl Hematocrit 22.7 % Mean Corpuscular 88.7 fl Volume Mean Corpuscular 29.3 pg Hemoglobin Mean Corpuscular 33.0 g/dl Hemoglobin Concent Red Cell 13.0 % Distribution Width Platelet Count 131 10^3/UL Mean Platelet 9.9 fl Volume Immature 0.300 % Granulocytes % Neutrophils % 62.8 % Lymphocytes % 21.1 % Monocytes % 13.4 % Eosinophils % 1.8 % Basophils % 0.6 % Nucleated Red Blood 0.0 /100WBC Cells % Immature 0.010 10^3/ul Granulocytes # Neutrophils # 2.1 10^3/ul Lymphocytes # 0.7 10^3/ul Monocytes # 0.5 10^3/ul Eosinophils # 0.1 10^3/ul Basophils # 0.0 10^3/ul Nucleated Red Blood 0.0 10^3/ul Cells # Sodium Level 134 mmol/L 143 mmol/L Potassium Level 6.5 mmol/L 4.8 mmol/L Chloride Level 97 mmol/L 98 mmol/L Carbon Dioxide 17 mmol/L 16 mmol/L Level Anion Gap 20 29 Blood Urea Nitrogen 126 mg/dl 123 mg/dl Creatinine 23.98 mg/dl 24.87 mg/dl Est Glomerular 3 mL/min 3 mL/min Filtrat Rate mL/min Glucose Level 86 mg/dl 43 mg/dl Calcium Level 8.7 mg/dl 9.8 mg/dl Phosphorus Level 9.4 mg/dl Total Bilirubin 0.3 mg/dl Direct Bilirubin 0.00 mg/dl Indirect Bilirubin 0.3 mg/dl Aspartate Amino 19 IU/L Transf (AST/SGOT) Alanine 22 IU/L Aminotransferase (A LT/SGPT) Alkaline 78 IU/L Phosphatase Troponin I 0.049 ng/ml B-Type Natriuretic 82260 PG/ML Peptide Total Protein 7.0 g/dl Albumin 4.3 g/dl Globulin 2.70 g/dl Albumin/Globulin 1.59 Ratio Bedside Glucose 72 mg/dL 60 mg/dL Current Medications Medications Dose Sig/Mehrdad Start Time Status Last (Trade) Ordered Route PRN Stop Time Admin Dose Reason Admin Sodium 30 gm ONCE STAT 02/14/19 DC 02/14/19 Polystyrene PO 00:53 01:22 Sulfonate 02/14/19 00:55 (Kayexelate 15 Gm Kit (Powder+Sorbi anna)) Albuterol 15 mg ONCE STAT 02/14/19 DC 02/14/19 (Proventil INH 00:53 00:53 0.5% (Neb)) 02/14/19 00:55 Sodium 50 ml ONCE STAT 02/14/19 DC 02/14/19 Bicarbonate IV 00:53 01:22 (Na Bicarb 02/14/19 00:55 8.4% Syg) Calcium 1,000 mg ONCE STAT 02/14/19 DC 02/14/19 Chloride IV 00:53 01:22 (Ca Chloride 02/14/19 00:55 10% Syg) Insulin 10 unit ONCE STAT 02/14/19 DC 02/14/19 Human IVP 00:53 01:37 Regular 02/14/19 00:55 (Humulin R) Ondansetron 4 mg ER BRIDGE 02/14/19 DC 02/14/19 HCl (Zofran PRN IV 01:30 01:34 Inj) NAUSEA/VOMITI 02/14/19 01:42 NG 650 mg ER BRIDGE 02/14/19 DC Acetaminophen PRN PO 01:30 (Tylenol .MILD PAIN 02/14/19 01:41 Tab) 1-3 OR TEMP IV Flush 3 ml PER 6/19/19 (NS 3 ml) PROTOCOL IV 01:30 Ondansetron 4 mg Q6H PRN 02/14/19 HCl (Zofran IV 01:30 Inj) NAUSEA/VOMITI NG 650 mg Q6H PRN 02/14/19 Acetaminophen PO .PAIN 1-3 01:30 (Tylenol OR TEMP Tab) Docusate 100 mg Q12H PRN 02/14/19 Sodium PO 01:30 (Colace) .CONSTIPATION Bisacodyl 5 mg DAILY PRN 02/14/19 (Dulcolax) PO 01:30 .CONSTIPATION Heparin 5,000 unit Q8H SC 02/14/19 02/14/19 Sodium 01:30 01:52 (Porcine) (Heparin (5000 Units/1ml)) Aspirin 81 mg DAILY PO 02/14/19 (Aspirin) 09:00 Carvedilol 25 mg BID PO 02/14/19 02/14/19 (Coreg) 01:30 02:07 Clonidine 0.1 mg TID PO 02/14/19 (Catapres) 09:00 Hydralazine 50 mg TID PO 02/14/19 HCl 09:00 (Apresoline) Nifedipine 60 mg BID PO 02/14/19 02/14/19 (Procardia 01:30 02:07 Xl) Hydralazine 20 mg ONCE ONCE 02/14/19 DC 02/14/19 HCl IV 02:00 02:07 (Apresoline) 02/14/19 02:01 Hydralazine 10 mg Q4H PRN 02/14/19 HCl IV ELEVATED 03:00 (Apresoline) BLOOD PRESSURE Hydralazine 20 mg Q6H PRN 02/14/19 HCl IV ELEVATED 03:00 (Apresoline) BLOOD PRESSURE Dextrose 25 ml ONCE ONCE 02/14/19 DC 02/14/19 (D50w IV 04:00 03:49 Syringe) 02/14/19 04:01 Dextrose 50 ml STK-MED 02/14/19 DC (D50w ONCE .ROUTE 03:44 Syringe) 02/14/19 03:45 Procedures/MDM EKG: Rate/Rhythm: [Normal Sinus Rhythm] QRS, ST, T-waves: [No changes consistent w/ acute ischemia] Impression: [No evidence of ischemia or arrhythmia] Chest X-ray 1V Interpreted by me: Soft Tissue: No acute abnormalities Bones: No acute abnormalities Mediastinum/Cardiac Silhouette/Lungs: [No acute abnormalities] Medical decision making: Is a 28-year-old male with severe hyperkalemia. Will be admitted to Dr. Cordova. Dr. Leland Nogueira was consulted from renal. Patien t likely needs emergent dialysis. He does no evidence of EKG changes, however he is very uremic. Dr. Cordova made aware along with Dr. Nogueira. Departure Diagnosis: Primary Impression: Hyperkalemia Condition: Serious ROMELIA PARTIDA Feb 14, 2019 04:06
[2019-02-14] MEDS: DEXTROSE 5%-0.45% NACL 1,000 ML IV SCH (04:56)
[2019-02-14] MEDS ORDERED: GLUCOSE GEL 15 GRAM TUBE BUCCAL PRN (05:00)
[2019-02-14] MEDS ORDERED: LABETALOL HCL 20MG INJ IV PRN (05:00)
[2019-02-14] MEDS ORDERED: GLUCOSE GEL 15 GRAM TUBE PO PRN ×2 (05:00)
[2019-02-14] MEDS ORDERED: GLUCAGON 1 MG INJ IM PRN (05:00)
[2019-02-14] MEDS ORDERED: DEXTROSE 50% 50 ML SYRINGE IV PRN ×2 (05:00)
[2019-02-14] MEDS: INSULIN ASPART [NOVOLOG] 3 ML PEN SC SCH ×4 (08:00→21:00)
[2019-02-14] MEDS ORDERED: ASPIRIN 81 MG TAB PO SCH (09:00)
--- NOTE | 2019-02-14 13:54 | CONS ---
DATE OF ADMISSION: 02/14/2019 DATE OF CONSULTATION: 02/14/2019 NEPHROLOGY CONSULTATION REASON FOR CONSULTATION: End-stage renal disease. PHYSICIAN REQUESTING CONSULT: Dr. Cordova. HISTORY OF PRESENT ILLNESS: 1. This is a 28-year-old male with a past medical history of end-stage renal disease on dialysis Tue, , Tuesday, last hemodialysis was last , history of hypertension, history of an emia, history of mineral bone disorder who presents to [facility] due to missing he modialysis. The patient on arrival to the emergency room had laboratory data drawn, which showed a p otassium level of 6.5. The patient was given IV insulin, Kayexalate in the emergency room. The norma ent was also noted to be hypotensive in the emergency room and was given antihypertensive medications . In terms of patient's renal history, the patient is on dialysis Tuesday, , Tuesday. Dialyze s at [facility]. The patient's primary housing development specialist is Dr. Dejesus. The patient's access is AV fistula. The patient denies any hemoptysis, hematemesis, hematochezia. PAST MEDICAL HISTORY: History of end-stage renal disease, history of anemia, history of hypertension . FAMILY HISTORY: No family history of kidney disease. SOCIAL HISTORY: Does not drink, smoke or do drugs. MEDICATIONS: The patient's medications have been reviewed. PAST SURGICAL HISTORY: Status post AV fistula placement. REVIEW OF SYSTEMS: A 14-point review of systems was conducted. Pertinent positives stated in HPI, o therwise negative. PHYSICAL EXAMINATION: VITAL SIGNS: Blood pressure is 183/114, respiration 14, pulse 102, temperature 98.6. HEENT: Head is normocephalic. NECK: Supple. HEART: Regular rate. LUNGS: Show diminished breath sounds at the base. ABDOMEN: Soft, nontender to palpation without rebound or guarding. EXTREMITIES: No clubbing, cyanosis, no edema. DERMATOLOGIC: No rashes. MUSCULOSKELETAL: No joint effusion. NEUROLOGIC: No focal deficits. MEDICATIONS: The patient's medications have been reviewed. LABORATORY DATA: Has been reviewed. IMAGING STUDIES: Have been reviewed. IMPRESSION AND PLAN: This is a 28-year-old male who presents with: 1. End-stage renal disease. Plan for hemodialysis today. Will dialyze for 3.5 hours, 2k bath, calc ium 2.5, ultrafiltrate as tolerated. 2. Anemia. Monitor hemoglobin and hematocrit levels. Will give Epogen with hemodialysis. 3. Mineral bone disorder. Monitor calcium and phosphorus levels. Start the patient on phos binders . 4. Hypertension in part due to increased intravascular volume. Plan is for ultrafiltration dialysis . Continue current blood pressure regimen. 5. Uremia. Continue current medical management. Continue hemodialysis. 6. Upper respiratory infection. Continue current treatment plan. Continue supportive care. Thank you, Dr. Cordova, for this interesting consult. It will be a pleasure to follow the patient wi th you throughout the hospital course. Dictated By: KENTRELL GRISSOM DO NR/NTS Conf#: [id number] DID#: [id number] CC: ROBERTO CORDOVA MD;*EndCC*
--- NOTE | 2019-02-14 16:27 | PN ---
Date/Time of Note Date/Time of Note DATE: 02/14/19 TIME: 16:24 Assessment/Plan VTE Prophylaxis SCD applied (from Nsg): Yes Pharmacological prophylaxis: heparin Lines/Catheters IV Catheter Type (from Nrsg): Saline Lock Assessment/Plan Hospital Course Assessment and plan 1. Uremia. Patient with missed dialysis. Die Hardener following. Continue on HD. Monitor electrolytes. 2. Hyperkalemia. Secondary to missed dialysis. Patient did receive insulin, Kayexalate, albuterol at the ER. Follow-up on labs. Kayexalate as needed. Continue on dialysis. 3. Hypertension. Will provide with antihypertensives as needed. 4. ESRD. Die Hardener following. Continue HD. 5. Elevated BNP in the setting of ESRD. No reports of shortness of breath or chest pain this time. Will monitor for now. Disposition plan. Patient counseled on compliance with dialysis. Monitor elect lites. Follow-up a.m. labs. Discharge within the next 24 hours if medically stable. Discussed plan of care with Dr. Hatch Result Diagram: 02/14/1951102/14/19511 Results 24hrs Laboratory Tests Test 02/13/19 23:17 02/14/19 01:21 02/14/19 02:30 02/14/19 03:40 White Blood Count 3.4 #L Red Blood Count 2.56 #L Hemoglobin 7.5 #L Hematocrit 22.7 #L Mean Corpuscular 88.7 Volume Mean Corpuscular 29.3 Hemoglobin Mean Corpuscular 33.0 Hemoglobin Concent Red Cell 13.0 Distribution Width Platelet Count 131 #L Mean Platelet Volume 9.9 Immature 0.300 Granulocytes % Neutrophils % 62.8 Lymphocytes % 21.1 Monocytes % 13.4 H Eosinophils % 1.8 Basophils % 0.6 Nucleated Red Blood 0.0 Cells % Immature 0.010 Granulocytes # Neutrophils # 2.1 Lymphocytes # 0.7 L Monocytes # 0.5 Eosinophils # 0.1 Basophils # 0.0 Nucleated Red Blood 0.0 Cells # Sodium Level 134 L 143 Potassium Level 6.5 *H 4.8 Chloride Level 97 98 Carbon Dioxide Level 17 L 16 L Anion Gap 20 H 29 #H Blood Urea Nitrogen 126 H 123 H Creatinine 23.98 H 24.87 H Est Glomerular 3 L 3 L Filtrat Rate mL/min Glucose Level 86 43 #*L Calcium Level 8.7 9.8 Phosphorus Level 9.4 H Total Bilirubin 0.3 Direct Bilirubin 0.00 Indirect Bilirubin 0.3 Aspartate Amino 19 Transf (AST/SGOT) Alanine 22 Aminotransferase (AL T/SGPT) Alkaline Phosphatase 78 Troponin I 0.049 B-Type Natriuretic 12882 H Peptide Total Protein 7.0 Albumin 4.3 Globulin 2.70 Albumin/Globulin 1.59 Ratio Bedside Glucose 72 60 L Test 02/14/19 04:44 02/14/19 05:12 02/14/19 08:06 Bedside Glucose 91 104 White Blood Count 4.6 #L Red Blood Count 2.72 L Hemoglobin 7.9 L Hematocrit 23.9 L Mean Corpuscular 87.9 Volume Mean Corpuscular 29.0 Hemoglobin Mean Corpuscular 33.1 Hemoglobin Concent Red Cell 13.2 Distribution Width Platelet Count 184 # Mean Platelet Volume 10.5 H Immature 0.200 Granulocytes % Neutrophils % 76.5 Lymphocytes % 13.4 L Monocytes % 9.1 Eosinophils % 0.4 Basophils % 0.4 Nucleated Red Blood 0.0 Cells % Immature 0.010 Granulocytes # Neutrophils # 3.5 Lymphocytes # 0.6 L Monocytes # 0.4 Eosinophils # 0.0 Basophils # 0.0 Nucleated Red Blood 0.0 Cells # Sodium Level 139 Potassium Level 6.0 H Chloride Level 99 Carbon Dioxide Level 18 L Anion Gap 22 #H Blood Urea Nitrogen 131 H Creatinine 24.43 H Est Glomerular 3 L Filtrat Rate mL/min Glucose Level 95 # Hemoglobin A1c 4.9 Calcium Level 9.0 Magnesium Level 2.8 H Total Bilirubin 0.3 Direct Bilirubin 0.00 Indirect Bilirubin 0.3 Aspartate Amino 21 Transf (AST/SGOT) Alanine 13 Aminotransferase (AL T/SGPT) Alkaline Phosphatase 80 Total Protein 7.3 Albumin 4.4 Globulin 2.90 Albumin/Globulin 1.51 Ratio Triglycerides Level 282 H Cholesterol Level 163 LDL Cholesterol, 83 Calculated HDL Cholesterol 24 L Cholesterol/HDL 6.7 Ratio Thyroid Stimulating 0.729 Hormone (TSH) Hepatitis B Surface NEGATIVE Antigen Subjective 24 Hr Interval Summary Free Text/Dictation Comfortable at present. Receiving dialysis during interview Exam/Review of Systems Exam Vitals Vital Signs Date Temp Pulse Resp B/P (MAP) Pulse Ox O2 O2 Flow FiO2 Time Delivery Rate 02/14/19 97.9 114 18 174/114 100 Room Air 15:25 (134) 02/14/19 21 01:59 Constitutional: alert, oriented Psych: nl mood/affect Head: normocephalic Eyes: nl conjunctiva Respiratory: clear to auscultation Cardiovascular: regular rate and rhythm Gastrointestinal: soft, non-tender Musculoskeletal: nl extremities to inspection Neurological: [employer] II-XII intact, nl mental status, nl speech Skin: nl turgor Results Results 24hrs Laboratory Tests Test 02/13/19 23:17 02/14/19 01:21 02/14/19 02:30 02/14/19 03:40 White Blood Count 3.4 #L Red Blood Count 2.56 #L Hemoglobin 7.5 #L Hematocrit 22.7 #L Mean Corpuscular 88.7 Volume Mean Corpuscular 29.3 Hemoglobin Mean Corpuscular 33.0 Hemoglobin Concent Red Cell 13.0 Distribution Width Platelet Count 131 #L Mean Platelet Volume 9.9 Immature 0.300 Granulocytes % Neutrophils % 62.8 Lymphocytes % 21.1 Monocytes % 13.4 H Eosinophils % 1.8 Basophils % 0.6 Nucleated Red Blood 0.0 Cells % Immature 0.010 Granulocytes # Neutrophils # 2.1 Lymphocytes # 0.7 L Monocytes # 0.5 Eosinophils # 0.1 Basophils # 0.0 Nucleated Red Blood 0.0 Cells # Sodium Level 134 L 143 Potassium Level 6.5 *H 4.8 Chloride Level 97 98 Carbon Dioxide Level 17 L 16 L Anion Gap 20 H 29 #H Blood Urea Nitrogen 126 H 123 H Creatinine 23.98 H 24.87 H Est Glomerular 3 L 3 L Filtrat Rate mL/min Glucose Level 86 43 #*L Calcium Level 8.7 9.8 Phosphorus Level 9.4 H Total Bilirubin 0.3 Direct Bilirubin 0.00 Indirect Bilirubin 0.3 Aspartate Amino 19 Transf (AST/SGOT) Alanine 22 Aminotransferase (AL T/SGPT) Alkaline Phosphatase 78 Troponin I 0.049 B-Type Natriuretic 47323 H Peptide Total Protein 7.0 Albumin 4.3 Globulin 2.70 Albumin/Globulin 1.59 Ratio Bedside Glucose 72 60 L Test 02/14/19 04:44 02/14/19 05:12 02/14/19 08:06 Bedside Glucose 91 104 White Blood Count 4.6 #L Red Blood Count 2.72 L Hemoglobin 7.9 L Hematocrit 23.9 L Mean Corpuscular 87.9 Volume Mean Corpuscular 29.0 Hemoglobin Mean Corpuscular 33.1 Hemoglobin Concent Red Cell 13.2 Distribution Width Platelet Count 184 # Mean Platelet Volume 10.5 H Immature 0.200 Granulocytes % Neutrophils % 76.5 Lymphocytes % 13.4 L Monocytes % 9.1 Eosinophils % 0.4 Basophils % 0.4 Nucleated Red Blood 0.0 Cells % Immature 0.010 Granulocytes # Neutrophils # 3.5 Lymphocytes # 0.6 L Monocytes # 0.4 Eosinophils # 0.0 Basophils # 0.0 Nucleated Red Blood 0.0 Cells # Sodium Level 139 Potassium Level 6.0 H Chloride Level 99 Carbon Dioxide Level 18 L Anion Gap 22 #H Blood Urea Nitrogen 131 H Creatinine 24.43 H Est Glomerular 3 L Filtrat Rate mL/min Glucose Level 95 # Hemoglobin A1c 4.9 Calcium Level 9.0 Magnesium Level 2.8 H Total Bilirubin 0.3 Direct Bilirubin 0.00 Indirect Bilirubin 0.3 Aspartate Amino 21 Transf (AST/SGOT) Alanine 13 Aminotransferase (AL T/SGPT) Alkaline Phosphatase 80 Total Protein 7.3 Albumin 4.4 Globulin 2.90 Albumin/Globulin 1.51 Ratio Triglycerides Level 282 H Cholesterol Level 163 LDL Cholesterol, 83 Calculated HDL Cholesterol 24 L Cholesterol/HDL 6.7 Ratio Thyroid Stimulating 0.729 Hormone (TSH) Hepatitis B Surface NEGATIVE Antigen Medications Medication Current Medications IV Flush (NS 3 ml) 3 ml PER PROTOCOL IV ; Start 02/14/19 at 01:30 Ondansetron HCl (Zofran Inj) 4 mg Q6H PRN IV NAUSEA/VOMITING; Start 02/14/19 at 01:30 Acetaminophen (Tylenol Tab) 650 mg Q6H PRN PO .PAIN 1-3 OR TEMP; Start 02/14/19 at 01:30 Docusate Sodium (Colace) 100 mg Q12H PRN PO .CONSTIPATION; Start 02/14/19 at 01:30 Bisacodyl (Dulcolax) 5 mg DAILY PRN PO .CONSTIPATION; Start 02/14/19 at 01:30 Heparin Sodium (Porcine) (Heparin (5000 Units/1ml)) 5,000 unit Q8H SC Last administered on 02/14/19at 11:08; Admin Dose 5,000 UNIT; Start 02/14/19 at 01:30 Aspirin (Aspirin) 81 mg DAILY PO Last administered on 02/14/19at 08:46; Admin Dose 81 MG; Start 02/14/19 at 09:00 Carvedilol (Coreg) 25 mg BID PO Last administered on 02/14/19at 08:47; Admin Dose 25 MG; Start 02/14/19 at 01:30 Clonidine (Catapres) 0.1 mg TID PO Last administered on 02/14/19 15:33; Admin Dose 0.1 MG; Start 02/14/19 at 09:00 Hydralazine HCl (Apresoline) 50 mg TID PO Last administered on 02/14/19at 15:33; Admin Dose 50 MG; Start 02/14/19 at 09:00 Nifedipine (Procardia Xl) 60 mg BID PO Last administered on 02/14/19 08:47; Admin Dose 60 MG; Start 02/14/19 at 01:30 Hydralazine HCl (Apresoline) 10 mg Q4H PRN IV ELEVATED BLOOD PRESSURE; Start 02/14/19 at 03:00 Hydralazine HCl (Apresoline) 20 mg Q6H PRN IV ELEVATED BLOOD PRESSURE; Start 02/14/19 at 03:00 Dextrose/Sodium Chloride 1,000 ml @ 50 mls/hr Q20H IV Last administered on 02/14/19at 04:56; Admin Dose 50 MLS/HR; Start 02/14/19 at 05:00 Diagnostic Test (Pha) (Accu-Chek) 1 ea 02 XX ; Start 02/15/19 at 02:00 Insulin Aspart (Novolog Insulin Pen) NOVOLOG *MILD* ALGORITHM WITH MEALS BEDTIME SC ; Start 02/14/19 at 08:00 Labetalol HCl (Labetalol) 10 mg Q4H PRN IV ELEVATED BLOOD PRESSURE; Start 02/14/19 at 05:00 Miscellaneous Information 1 ea NOTE XX ; Start 02/14/19 at 05:00 Glucose (Glutose) 15 gm Q15M PRN PO DECREASED GLUCOSE; Start 02/14/19 at 05:00 Glucose (Glutose) 22.5 gm Q15M PRN PO DECREASED GLUCOSE; Start 02/14/19 at 05:00 Dextrose (D50w Syringe) 25 ml Q15M PRN IV DECREASED GLUCOSE; Start 02/14/19 at 05:00 Dextrose (D50w Syringe) 50 ml Q15M PRN IV DECREASED GLUCOSE; Start 02/14/19 at 05:00 Glucagon (Glucagen) 1 mg Q15M PRN IM DECREASED GLUCOSE; Start 02/14/19 at 05:00 Glucose (Glutose) 15 gm Q15M PRN BUCCAL DECREASED GLUCOSE; Start 02/14/19 at 05:00 MARY MADDOX NP Feb 14, 2019 16:27
[2019-02-15] VITALS: BP 123/72; PULSE 102; RESP 18
[2019-02-15 00:49] VITALS: PULSE 91
[2019-02-15] MEDS: DEXTROSE 5%-0.45% NACL 1,000 ML IV SCH (01:00)
[2019-02-15] MEDS: HEPARIN 5,000 UNIT/1 ML VIAL SC SCH (01:30)
[2019-02-15] MEDS ORDERED: ACCU-CHEK XX SCH (02:00)
[2019-02-15 04:00] VITALS: BP 142/89; PULSE 101; RESP 18
[2019-02-15 04:14] VITALS: PULSE 96
[2019-02-15 07:34] VITALS: BP 167/102; PULSE 101; RESP 18
--- NOTE | 2019-02-15 11:20 | PN ---
DATE: 02/15/2019 SUBJECTIVE: The patient is stable. No events overnight. She had hemodialysis yesterday and tolerat ed it well. OBJECTIVE: VITAL SIGNS: Blood pressure is 167/102, respiration 18, pulse 101, temperature 98.3. HEENT: Head is normocephalic. NECK: Supple. HEART: Regular rate. LUNGS: Show diminished breath sounds at the base. ABDOMEN: Soft, nontender to palpation without rebound or guarding. EXTREMITIES: Negative for clubbing, cyanosis, no edema. DERMATOLOGIC: No rashes. MUSCULOSKELETAL: No joint effusion. NEUROLOGIC: No change in exam. MEDICATIONS: The patient's medications have been reviewed. LABORATORY DATA: Has been reviewed. IMAGING STUDIES: Have been reviewed. IMPRESSION AND PLAN: 1. End-stage renal disease. The patient is on dialysis Tuesday, , Tuesday with access AV f istula. The patient had hemodialysis yesterday, tolerated well. Plan for dialysis again today to ke ep patient on normal schedule. 2. Hyperkalemia. The patient will be dialyzed on low potassium bath. 3. Anemia. Monitor hemoglobin and hematocrit levels. 4. Mineral bone disorder. Monitor calcium and phosphorus levels. Continue phosphate binders. 5. Hypertension. Continue current blood pressure regimen. Continue ultrafiltration dialysis. 6. Uremia. Continue hemodialysis. 7. Upper respiratory infection. Continue supportive care. Dictated By: KENTRELL RUSSO/NTS Conf#: [id number] DID#: [id number] CC: ROBERTO POLO MD;*EndCC*
--- NOTE | 2019-02-15 14:26 | DS ---
Date/Time of Note Date/Time of Note DATE: 02/15/19 TIME: 14:25 Discharge Summary Admission/Discharge Info Admit Date/Time Feb 14, 2019 at 01:08 Discharge Date/Time Feb 15, 2019 at 08:20 Patient Condition: Stable Hospital Course Patient left against medical advice. Patient was advised about the consequences of medical non-compliance. patient still left AMA Discussed case with Dr. Hatch [place] Meds Active Scripts Aspirin (Aspirin) 81 Mg Chew, 81 MG PO DAILY, #30 TAB Prov:FRANK ALBERTS [employer] 12/13/18 Nifedipine (Procardia Xl) 60 Mg Tab.er.24, 60 MG PO BID, #60 TAB Prov:ALBERTSLEOA V. [employer] SCI[employer] TEACHER 12/13/18 Clonidine Hcl* (Catapres*) 0.1 Mg Tablet, 0.1 MG PO TID, #90 TAB Prov:ALBERTSFRANK V. [employer] SCI[employer] TEACHER 12/13/18 Carvedilol* (Carvedilol*) 25 Mg Tablet, 25 MG PO BID, #60 TAB Prov:FRANK ALBERTS [employer]ER 12/13/18 Hydralazine Hcl* (Hydralazine Hcl*) 50 Mg Tab, 50 MG PO TID, #90 TAB Prov:ANA MCKEON NP 06/14/18 Discontinued Scripts Multivit/Ca Carb/B Cmplx/Fa* (Adrianne-Lauren*) 1 Tab Tab, 1 TAB PO DAILY, #30 TAB Prov:ANA MCKEON NP 06/14/18 Losartan Potassium* (Cozaar*) 50 Mg Tablet, 50 MG PO BID, #60 TAB Prov:ANA MCKEON NP 06/14/18 Primary Care Provider Care Physician No Primary Time spent on discharge: > 30 minutes MARY MADDOX NP Feb 15, 2019 14:26
--- NOTE | 2019-02-20 19:32 | RADRPT ---
Echocardiogram Report Patient Name: Mario BUSBY ID: [id number] : 1990 (28y 7m)Study Date: 02/14/2019 7:10:23 AM Gender: MAccession #: [id number] Tech: Michele Arnett [facility] Location: [facility] Ref.Physician: ROBERTO POLO Height(Cm): BSA: Weight(Kg): Quality: AdequateOrder Physician: ROBERTO POLO Account #: Procedures: Echocardiographic Report: Transthoracic echocardiogram examination. Indications: Elevated BNP, end-stage renal failure. Measurements: 2D/M Mode Doppler Measurement Value Normal Range Measurement Value Normal Range LVIDd 2D 5.3 [ 4.2 - 5.8 ] cm TR Peak Rick 3.4 [ 100.0 - 280.0 ] cm/sec LVIDs 2D 3.8 [ 2.5 - 4.0 ] cm TR Peak PG 46.0 mmHg LVPWd 2D 1.3 [ 0.6 - 1.0 ] cm IVSd 2D 1.4 [ 0.6 - 1.0 ] cm AoR Diam 2D 2.2 [ 2.6 - 3.4 ] cm LA Dimen 2D 4.7 [ 3.0 - 4.0 ] cm Findings: Left Ventricle: Normal left ventricular cavity size. Normal left ventricular systolic function. Moderate concentric left ventricular hypertrophy. The left ventricular ejection fraction is visually estimated at 55 %. Left Atrium: There is moderate enlargement of left atrium. Mitral Valve: Mitral valve leaflet appear mildly thickened. Mild mitral annular calcification. Mild mitral regurgitation. Tricuspid Valve: The estimated Peak RVSP is 61 mmHg. There is mild to moderate tricuspid regurgitation. IVC: Dilated inferior vena cava with poor respiratory collapse. Conclusions: Normal left ventricular cavity size. Normal left ventricular systolic function. Moderate concentric left ventricular hypertrophy. The left ventricular ejection fraction is visually estimated at 55 %. Mild mitral regurgitation. The estimated Peak RVSP is 61 mmHg. There is mild to moderate tricuspid regurgitation. Electronically Signed By: Javy Brenner 2019-02-20 19:31:59 PDT
== END 2019-02-15 08:20 | disposition left against medical advice (07) | DRG 682 ==
LOC: E/R 21:12 → TEL 02-14 01:08 → EDBEDREQ 02-14 09:54
PROVIDERS: ADMIT Family Medicine; ATTEND Family Medicine
DX: I12.0 Hypertensive chronic kidney disease with stage 5 chronic kidney disease or end stage renal disease (principal); N18.6 End stage renal disease; E87.5 Hyperkalemia; J06.9 Acute upper respiratory infection, unspecified; R79.89 Other specified abnormal findings of blood chemistry; F17.200 Nicotine dependence, unspecified, uncomplicated; D63.1 Anemia in chronic kidney disease; Z79.82 Long term (current) use of aspirin; Z91.15 Patient's noncompliance with renal dialysis
CPT/HCPCS: 36415; 71045; 80048; 80053; 80061; 82962; 83036; 83735; 83880; 84100; 84443; 84484; 85025; 87340; 90935; 93005; 93308; 94664; J0360; J1644; J1815; J2405; J7042

== ENCOUNTER 2019-05-05 06:59 | Inpatient (IN) | payer MEDICARE ==
[~2019-05-05] VITALS: Ht 185.4 cm; Wt 72.0 kg
[~2019-05-05 06:59] MED LIST changes: +AMOX1TAB9 PO; +CARV25TA97 PO; +CLON-379 PO; +FER325 PO; -LOSA50TA2 PO; -NEPH PO; +OMEP20CA17 PO
[2019-05-05] MEDS ORDERED: CA GLUCONATE (GM) 10% 10ML INJ ONE (07:16)
[2019-05-05] MEDS ORDERED: LORAZEPAM 2 MG INJ IV ONE (07:30)
[2019-05-05] MEDS ORDERED: CALCIUM GLUCONATE 10% 1 GM in DEXTROSE 5% 100 ML IVPB ONE (07:30)
[2019-05-05] MEDS ORDERED: CEFEPIME 1GM/50 ML (PMX) 50 ML IVPB STA (07:31)
[2019-05-05] MEDS ORDERED: VANCOMYCIN 1 GM (PMX) 250 ML IVPB STA (07:31)
[2019-05-05] MEDS ORDERED: SOD CHLORIDE 0.9% 500 ML IV STA (07:31)
[2019-05-05] MEDS ORDERED: ONDANSETRON 4 MG INJ IV STA (08:26)
[2019-05-05] MEDS ORDERED: LABETALOL HCL 20MG INJ IV ONE (08:30)
[2019-05-05] MEDS ORDERED: ASPIRIN 81 MG TAB PO ONE (08:30)
[2019-05-05] MEDS ORDERED: ONDANSETRON 4 MG INJ IV PRN (08:30)
[2019-05-05] MEDS ORDERED: ACETAMINOPHEN 325 MG TAB PO PRN ×2 (08:30→09:30)
[2019-05-05] MEDS ORDERED: ONDANSETRON 4 MG TAB PO PRN (09:30)
[2019-05-05] MEDS ORDERED: PNEUMOC 13-VAL CONJ-DIP CRM/PF 0.5 ML SYR IM* ONE (09:30)
[2019-05-05] MEDS ORDERED: ATENOLOL 50 MG TAB PO ONE (09:30)
[2019-05-05] MEDS ORDERED: NACL 0.9% 3 ML SYG IV SCH (09:30)
[2019-05-05] MEDS ORDERED: DOCUSATE SODIUM 100 MG CAP PO PRN (09:30)
[2019-05-05] MEDS ORDERED: EPOETIN ALFA-EPBX (ESRD) 3,000 UNIT/ML VIAL SC SCH (10:00)
[2019-05-05] MEDS ORDERED: EPOETIN ALFA-EPBX (ESRD) 10,000 UNIT/ML VIAL SC ONE (10:00)
[2019-05-05] MEDS: LOSARTAN 50 MG TAB PO SCH (10:36)
[2019-05-05] MEDS: THIAMINE 100 MG TAB PO SCH (10:36)
[2019-05-05 12:00] VITALS: BP 194/126; PULSE 92; RESP 18
[2019-05-05] MEDS: AZITHROMYCIN 500MG/NS (PMX) 250 ML IV SCH (14:53)
[2019-05-05] MEDS: FAMOTIDINE 20 MG TAB PO SCH (14:53)
[2019-05-05 15:29] VITALS: Ht 185.4 cm; Wt 72.0 kg
[2019-05-05 15:44] VITALS: BP 160/101; PULSE 93; RESP 20
[2019-05-05] MEDS: HYDROCODONE/APAP (5/325) TAB PO PRN (17:11)
[2019-05-05 19:45] VITALS: BP 153/95; PULSE 83; RESP 18
[2019-05-05] MEDS: DOXAZOSIN 1 MG TAB PO SCH (21:10)
[2019-05-05] MEDS: HEPARIN 5,000 UNIT/1 ML VIAL SC SCH (21:16)
[2019-05-05] MEDS: CEFEPIME 2GM/50 ML (PMX) 50 ML IV SCH (21:30)
[2019-05-06] VITALS (23 sets, daily range): BP systolic 132–163; BP diastolic 64–101; PULSE 73–93; RESP 16–21
[2019-05-06] MEDS: HYDROCODONE/APAP (5/325) TAB PO PRN (04:52)
[2019-05-06] MEDS: ATENOLOL 50 MG TAB PO SCH ×2 (08:26→09:00)
[2019-05-06] MEDS: LOSARTAN 50 MG TAB PO SCH ×2 (08:27→09:01)
[2019-05-06] MEDS: FAMOTIDINE 20 MG TAB PO SCH (08:27)
[2019-05-06] MEDS: THIAMINE 100 MG TAB PO SCH (08:27)
[2019-05-06] MEDS: HEPARIN 5,000 UNIT/1 ML VIAL SC SCH ×2 (08:50→21:00)
[2019-05-06] MEDS ORDERED: ASPIRIN 81 MG TAB PO SCH (09:00)
[2019-05-06] MEDS ORDERED: PANTOPRAZOLE 40 MG INJ IV ONE (09:00)
[2019-05-06] MEDS: SUCRALFATE (100 MG/ML) 10ML CUP PO SCH ×4 (12:35→22:30)
[2019-05-06] MEDS: PANTOPRAZOLE 40 MG INJ IV SCH (17:57)
[2019-05-06] MEDS: DOXAZOSIN 1 MG TAB PO SCH (22:31)
[2019-05-06] MEDS: CEFEPIME 2GM/50 ML (PMX) 50 ML IV SCH (22:36)
[2019-05-06] MEDS: AZITHROMYCIN 500MG/NS (PMX) 250 ML IV SCH (22:37)
[2019-05-07] VITALS (10 sets, daily range): BP systolic 145–182; BP diastolic 72–113; PULSE 71–86; RESP 16–20
[2019-05-07] MEDS: PANTOPRAZOLE 40 MG INJ IV SCH ×2 (06:03→17:13)
[2019-05-07] MEDS: ATENOLOL 50 MG TAB PO SCH (08:18)
[2019-05-07] MEDS: FAMOTIDINE 20 MG TAB PO SCH (08:18)
[2019-05-07] MEDS: THIAMINE 100 MG TAB PO SCH (08:18)
[2019-05-07] MEDS: LOSARTAN 50 MG TAB PO SCH (08:19)
[2019-05-07] MEDS: SUCRALFATE (100 MG/ML) 10ML CUP PO SCH ×4 (08:19→23:10)
[2019-05-07] MEDS: AZITHROMYCIN 500MG/NS (PMX) 250 ML IV SCH (09:55)
[2019-05-07] MEDS ORDERED: SOD CHLORIDE 0.9% 250 ML IV* ONE (13:43)
[2019-05-07] MEDS ORDERED: PROPOFOL 40 ML ONE (15:01)
[2019-05-07] MEDS ORDERED: LABETALOL HCL 20MG INJ ONE (15:01)
[2019-05-07] MEDS ORDERED: hydrALAzine 20 MG INJ ONE (15:02)
[2019-05-07] MEDS ORDERED: BISACODYL (EC) 5 MG TAB PO ONE ×2 (15:30→20:40)
[2019-05-07] MEDS: PIPER-TAZO 2.25 GM (PMX) 50 ML IVPB SCH ×2 (16:11→23:10)
[2019-05-07] MEDS ORDERED: POLYETHYLENE GLYCOL 3350 119 GM POWDER PO ONE ×2 (16:30→22:00)
[2019-05-07] MEDS: DOXAZOSIN 1 MG TAB PO SCH (23:09)
[2019-05-08] VITALS (19 sets, daily range): BP systolic 120–210; BP diastolic 75–121; PULSE 63–92; RESP 16–76
[2019-05-08] MEDS ORDERED: LABETALOL HCL 20MG INJ IV ONE (00:30)
[2019-05-08] MEDS: PIPER-TAZO 2.25 GM (PMX) 50 ML IVPB SCH ×3 (06:23→23:46)
[2019-05-08] MEDS: PANTOPRAZOLE 40 MG INJ IV SCH ×2 (06:24→17:34)
[2019-05-08] MEDS: ATENOLOL 50 MG TAB PO SCH (07:25)
[2019-05-08] MEDS: THIAMINE 100 MG TAB PO SCH (09:00)
[2019-05-08] MEDS: SUCRALFATE (100 MG/ML) 10ML CUP PO SCH ×4 (09:00→23:46)
[2019-05-08] MEDS: LOSARTAN 50 MG TAB PO SCH (09:00)
[2019-05-08] MEDS: FAMOTIDINE 20 MG TAB PO SCH (09:00)
[2019-05-08] MEDS: NIFEdipine (XL) 30 MG TAB PO SCH (15:30)
[2019-05-08] MEDS ORDERED: PROPOFOL 20 ML ONE (18:34)
[2019-05-08] MEDS ORDERED: FENTAnyl 50 MCG/ML VIAL ONE (18:34)
[2019-05-08] MEDS ORDERED: hydrALAzine 20 MG INJ ONE (18:43)
[2019-05-08] MEDS: DOXAZOSIN 1 MG TAB PO SCH (23:46)
[2019-05-09] VITALS (22 sets, daily range): BP systolic 150–198; BP diastolic 75–115; PULSE 69–86; RESP 18–22
[2019-05-09] MEDS: PIPER-TAZO 2.25 GM (PMX) 50 ML IVPB SCH ×3 (06:48→22:15)
[2019-05-09] MEDS: PANTOPRAZOLE 40 MG INJ IV SCH ×2 (06:48→17:20)
[2019-05-09] MEDS: ATENOLOL 50 MG TAB PO SCH (07:25)
[2019-05-09] MEDS: NIFEdipine (XL) 30 MG TAB PO SCH (07:49)
[2019-05-09] MEDS: LOSARTAN 50 MG TAB PO SCH (07:49)
[2019-05-09] MEDS: THIAMINE 100 MG TAB PO SCH (08:10)
[2019-05-09] MEDS: SUCRALFATE (100 MG/ML) 10ML CUP PO SCH ×4 (08:10→20:22)
[2019-05-09] MEDS: FAMOTIDINE 20 MG TAB PO SCH (08:10)
[2019-05-09] MEDS: DOXAZOSIN 1 MG TAB PO SCH (20:23)
[2019-05-10] VITALS (19 sets, daily range): BP systolic 148–190; BP diastolic 90–122; PULSE 72–85; RESP 10–22
[2019-05-10] MEDS: PIPER-TAZO 2.25 GM (PMX) 50 ML IVPB SCH ×2 (06:14→15:04)
[2019-05-10] MEDS: PANTOPRAZOLE 40 MG INJ IV SCH (06:15)
[2019-05-10] MEDS: ATENOLOL 50 MG TAB PO SCH (07:37)
[2019-05-10] MEDS: THIAMINE 100 MG TAB PO SCH (08:03)
[2019-05-10] MEDS: SUCRALFATE (100 MG/ML) 10ML CUP PO SCH ×2 (08:04→12:47)
[2019-05-10] MEDS: FAMOTIDINE 20 MG TAB PO SCH (08:04)
[2019-05-10] MEDS: NIFEdipine (XL) 30 MG TAB PO SCH ×2 (08:05→11:49)
[2019-05-10] MEDS: LOSARTAN 50 MG TAB PO SCH ×2 (08:05→11:49)
[2019-05-10] MEDS ORDERED: NIFEdipine (XL) 30 MG TAB PO ONE (15:00)
[2019-05-11] MEDS ORDERED: NIFEdipine (XL) 90 MG TAB PO SCH (09:00)
== END 2019-05-10 17:15 | disposition home or self-care (01) | DRG 377 ==
LOC: E/R 06:59 → TEL 08:27
PROVIDERS: ADMIT Internal Medicine; ATTEND Internal Medicine
PROC: 30233N1 Transfusion of Nonautologous Red Blood Cells into Peripheral Vein, Percutaneous Approach (ICD-10-PCS; 2019-05-06)
PROC: 5A1D70Z Performance of Urinary Filtration, Intermittent, Less than 6 Hours Per Day (ICD-10-PCS; 2019-05-06)
PROC: 0DB78ZX Excision of Stomach, Pylorus, Via Natural or Artificial Opening Endoscopic, Diagnostic (ICD-10-PCS; 2019-05-07)
PROC: 0DB68ZX Excision of Stomach, Via Natural or Artificial Opening Endoscopic, Diagnostic (ICD-10-PCS; principal; 2019-05-07 18:00)
PROC: 0D5P8ZZ Destruction of Rectum, Via Natural or Artificial Opening Endoscopic (ICD-10-PCS; 2019-05-08)
DX: K92.2 Gastrointestinal hemorrhage, unspecified (principal); J69.0 Pneumonitis due to inhalation of food and vomit; N18.6 End stage renal disease; D62 Acute posthemorrhagic anemia; I12.0 Hypertensive chronic kidney disease with stage 5 chronic kidney disease or end stage renal disease; R64 Cachexia; E87.0 Hyperosmolality and hypernatremia; D63.1 Anemia in chronic kidney disease; E87.5 Hyperkalemia; F17.200 Nicotine dependence, unspecified, uncomplicated; K92.1 Melena; K64.8 Other hemorrhoids; K62.1 Rectal polyp; I34.0 Nonrheumatic mitral (valve) insufficiency; R55 Syncope and collapse; Z99.2 Dependence on renal dialysis; Z68.20 Body mass index [BMI] 20.0-20.9, adult; Z91.15 Patient's noncompliance with renal dialysis; Z91.14 Patient's other noncompliance with medication regimen; Z79.82 Long term (current) use of aspirin
CPT/HCPCS: 36415; 36430; 70450; 71045; 80048; 80053; 80307; 82962; 83605; 83735; 84100; 84484; 85025; 85610; 85730; 86480; 86850; 86900; 86901; 86920; 87340; 88305; 88312; 90670; 90935; 93005; 96374; 96375; C9113; J0360; J0456; J0610; J0692; J1644; J2060; J2405; J2543; J3010; J3370; J7040; P9016; Q5105